=== PATIENT | male | born 1960 | race Caucasian/White ===

== ENCOUNTER → 2017-09-19 | Day surgery (SDC) | payer OTHER ==
[~2017-09-19] MED LIST: BENZOCAINE/TETRACAINE/BUTAMBEN AERO SPRAY 56 GM CAN ONE; BUPROPION HCL100 MG PO; FENTANYL CITRATE/PF 100MCG/2 ML INJ ONE; LEXAPRO10 MG PO; LIDOCAINE HCL 2% LOCAL INJ 5 ML SDV VIAL INJ ONE; MIDAZOLAM HCL 2 MG/2 ML VIAL ONE; OXYBUTYNIN CHLOR5 MG PO; PROPOFOL IV EMULSION 10 MG/ML 20 ML VIAL ONE; SIMETHICONE 40 MG/0.6 ML BTL ONE; ULORIC80 MG PO
== END | disposition home or self-care (01) ==
LOC: OR 09:34
PROVIDERS: ATTEND Internal Medicine Gastroenterology
DX: K52.9 Noninfective gastroenteritis and colitis, unspecified (principal); D12.2 Benign neoplasm of ascending colon; K29.70 Gastritis, unspecified, without bleeding; K44.9 Diaphragmatic hernia without obstruction or gangrene; K57.30 Diverticulosis of large intestine without perforation or abscess without bleeding; K64.8 Other hemorrhoids; M06.9 Rheumatoid arthritis, unspecified; G47.33 Obstructive sleep apnea (adult) (pediatric); R42 Dizziness and giddiness; E66.01 Morbid (severe) obesity due to excess calories; F41.9 Anxiety disorder, unspecified; F31.9 Bipolar disorder, unspecified; Z01.810 Encounter for preprocedural cardiovascular examination; Z68.44 Body mass index [BMI] 60.0-69.9, adult; Z80.0 Family history of malignant neoplasm of digestive organs
CPT/HCPCS: 43239; 45385; 88305; 88312; 93005; J2001; J2250; 45380

== ENCOUNTER → 2018-08-23 | Day surgery (SDC) | payer OTHER ==
[2018-08-16 13:36] LABS: BASOPHILS # (AUTO) 0.1 (0.0-0.1); BASOPHILS % 0.8 % (0.0-1.0); EOSINOPHILS # (AUTO) 0.2 (0.0-0.4); EOSINOPHILS % 1.7 % (0.0-6.0); HEMATOCRIT 47.5 % (38.2-49.6); HEMOGLOBIN 15.6 g/dL (14.0-18.0); LYMPHOCYTES # (AUTO) 2.2 (1.0-3.2); LYMPHOCYTES % 24.2 % (18.0-39.1); MEAN CORPUSCULAR HEMOGLOBIN 30.8 pg (28-32); MEAN CORPUSCULAR HGB CONC 32.8 g/dL (31-35); MEAN CORPUSCULAR VOLUME 93.7 fL (81-99); MONOCYTES % 10.9 % (4.4-11.3); NEUTROPHILS # (AUTO) 5.6 (2.1-6.9); NEUTROPHILS % 61.2 % (38.7-80.0); PLATELET COUNT 345 x10e3/uL (140-360); RED BLOOD COUNT 5.07 x10e6/uL (4.3-5.7); RED CELL DISTRIBUTION WIDTH 13.1 % (11.7-14.4)
[2018-08-16 13:54] LABS: ANION GAP 14.5 mmol/L (8-16); BLOOD UREA NITROGEN 19 mg/dL (7-26); BUN/CREATININE RATIO 20 (6-25); CALCIUM 8.7 mg/dL (8.4-10.2); CARBON DIOXIDE 26 mmol/L (22-29); CHLORIDE 104 mmol/L (98-107); CREATININE, SERUM 0.96 mg/dL (0.72-1.25); EST GLOMERULAR FILTRATION RATE > 60 ML/MIN (60-); GLUCOSE 136 mg/dL (74-118); POTASSIUM 4.5 mmol/L (3.5-5.1); SODIUM 140 mmol/L (136-145)
--- NOTE | 2018-08-16 14:53 | Diagnostic Imaging Report ---
EXAMINATION: CHEST 2 VIEWS INDICATION: Pre-op for cystoscopy COMPARISON: None FINDINGS: TUBES and LINES: None. LUNGS: Lungs are well inflated. Lungs are clear. There is no evidence of pneumonia or pulmonary edema. PLEURA: No pleural effusion or pneumothorax. HEART AND MEDIASTINUM: The cardiomediastinal silhouette is unremarkable. BONES AND SOFT TISSUES: No acute osseous lesion. Soft tissues are unremarkable. UPPER ABDOMEN: No free air under the diaphragm. IMPRESSION: No acute radiographic abnormality. Signed by: Dr. Cresencio Murcia MD on 08/16/2018 2:50 PM
[~2018-08-23] MED LIST changes: +ABILIFY5 MG PO; -BENZOCAINE/TETRACAINE/BUTAMBEN AERO SPRAY 56 GM CAN ONE; +BUSPAR PO; +CEFTRIAXONE SOD 1 GM/NS 50 ML 50 ML IV ONE; +DECARA25000 UNIT PO; +DEXAMETHASONE SOD PHOS INJ 4 MG/ML VIAL ONE; +FISH OIL 1,0001 EAC2 PO; +FUROSEMIDE40 MG PO; +IOPAMIDOL 610MG/1ML 300 MG/ML VIAL IV ONE; +KETAMINE HCL INJ 50 MG/ML 10 ML VIAL ONE; +MAGNESIUM OXID400 MG PO; +MELOXICAM7.5 MG PO; +METFORMIN HCL500 MG PO; +ONDANSETRON HCL INJ 2MG/ML 2ML 2 MG/ML VIAL ONE; +POTASSIUM PO; +SEVOFLURANE INHAL SOLN 250 ML PEN BTL ONE; -SIMETHICONE 40 MG/0.6 ML BTL ONE
--- OUTSIDE RECORDS SUMMARY | 2018-08-23 06:31 | XMS REPORT ---
[facility] Address Unknown Phone Unavailable Care Team Providers Care Presales Consultant Name Role Phone RACHEL BA Unavailable Unavailable Problems This patient has no known problems. Allergies, Adverse Reactions, Alerts This patient has no known allergies or adverse reactions. Medications This patient has no known medications. Results Test Description Test Time Test Comments Text Results Atomic Results Result Comments CHEST 2 VIEWS 2018-08-16 14:42:00 [place] [address] Patient Name: YAMILE TEE MR #: [id number] : 1960 Age/Sex: 57/M Req #: [id number] Adm Physician: Ordered by: RACHEL BA MD Report #: [id number] Location: OR Room/Bed: Procedure: [id number] DX/CHEST 2 VIEWS Exam Date: 08/16/18 Exam Time: 1405 REPORT STATUS: Signed EXAMINATION: CHEST 2 VIEWS INDICATION: Pre-op for cystoscopy COMPARISON: None FINDINGS: TUBES and LINES: None. LUNGS: Lungs are well inflated. Lungs are clear. There is no evidence of pneumonia or pulmonary edema. PLEURA: No pleural effusion or pneumothorax. HEART AND MEDIASTINUM: The cardiomediastinal silhouette is unremarkable. BONES AND SOFT TISSUES: No acute osseous lesion. Soft tissues are unremarkable. UPPER ABDOMEN: No free air under the diaphragm. IMPRESSION: No acute radiographic abnormality. Signed by: Dr. Helen Magana MD on 08/16/2018 2:50 PM Dictated By: HELEN MAGANA MD 49 Transcribed By: TRACY on 08/16/181449 COPY TO: RACHEL BA MD
[2018-08-23 09:55] VITALS: BP 150/78
--- NOTE | 2018-08-24 20:42 | Operative Report ---
DATE OF PROCEDURE: August 23, 2018 PREOPERATIVE DIAGNOSES 1. Multiple chronic urinary tract infections. 2. Clinical signs and symptoms of interstitial cystitis. 3. Obesity. 4. Benign prostatic hypertrophy. POSTOPERATIVE DIAGNOSES 1. Multiple chronic urinary tract infections. 2. Clinical signs and symptoms of interstitial cystitis. 3. Obesity. 4. Benign prostatic hypertrophy. 5. Urethral stricture disease. PROCEDURES PERFORMED 1. Cystourethroscopy with hydrodistention (entirely separate procedure for clinical signs and symptoms of interstitial cystitis). 2. Cystourethroscopy with left ureteral catheterization and left retrograde pyelogram (separate procedure for multiple chronic urinary tract infections). 3. Cystourethroscopy with right ureteral catheterization and right retrograde pyelogram (separate procedure for multiple chronic urinary tract infections). 4. Supervision of fluoroscopy. 5. Interpretation of retrograde pyelography. ANESTHESIA: General. ESTIMATED BLOOD LOSS: Minimal. COMPLICATIONS: None. INDICATIONS FOR PROCEDURE: Mr. Meng is a 57-year-old obese male patient. He states he has been diagnosed with interstitial cystitis previously. He and I had a long discussion regarding alternatives, risks, and benefits including doing nothing, cystoscopy, hydrodistention, retrograde pyelograms, renal ultrasound. He voiced understanding of the options, alternatives, risks, and benefits and he elected to proceed. PROCEDURE IN DETAIL: After informed consent was obtained, the patient was taken to the operative suite. He was placed supine on the operating table and underwent general anesthesia by anesthesia service. He was placed in dorsal lithotomy position and sterilely prepped and draped for cystoscopy. Attempt was made to insert a 21-Japanese cystoscope. There were bulbar urethral strictures multiple in nature. Due to the patient's obesity and body habitus, the scope could not be introduced. A flexible cystoscope was then introduced. There was bilobar prostatic hypertrophy. Panendoscopy of the bladder revealed very large capacity of 1000 mL bladder. The hydrodistention was performed through the flexible scope which showed no trabeculations, no glomerulations, no Hunner's ulcers. Bilateral retrograde pyelogram was performed, which extremely limited secondary to the patient's body habits; however, no gross filling defects could be seen. Bladder was drained. The patient was awakened from anesthesia and transported to recovery room in excellent condition. No untoward effects noted. Job#: [id number]
== END | disposition home or self-care (01) ==
LOC: OR 06:29
PROVIDERS: ATTEND Urology
DX: N39.0 Urinary tract infection, site not specified (principal); N35.912 Unspecified bulbous urethral stricture, male; N40.0 Benign prostatic hyperplasia without lower urinary tract symptoms; E66.9 Obesity, unspecified; I10 Essential (primary) hypertension; G47.33 Obstructive sleep apnea (adult) (pediatric); E11.9 Type 2 diabetes mellitus without complications; Z88.1 Allergy status to other antibiotic agents; Z88.8 Allergy status to other drugs, medicaments and biological substances; Z01.810 Encounter for preprocedural cardiovascular examination; Z01.812 Encounter for preprocedural laboratory examination; Z01.818 Encounter for other preprocedural examination; Z79.84 Long term (current) use of oral hypoglycemic drugs
CPT/HCPCS: 36415 ×2; 52260; 71046; 74420; 80048; 82948; 85025; 93005; C1758; J0696; J1100; J2001; J2250; J2405; J2704; Q9967

== ENCOUNTER 2020-05-18 10:39 | Observation (INO) | payer OTHER ==
[~2020-05-18] VITALS: Ht 172.7 cm; Wt 191.4 kg
[~2020-05-18 10:39] MED LIST changes: -CEFTRIAXONE SOD 1 GM/NS 50 ML 50 ML IV ONE; -DEXAMETHASONE SOD PHOS INJ 4 MG/ML VIAL ONE; -FENTANYL CITRATE/PF 100MCG/2 ML INJ ONE; -IOPAMIDOL 610MG/1ML 300 MG/ML VIAL IV ONE; -KETAMINE HCL INJ 50 MG/ML 10 ML VIAL ONE; -LIDOCAINE HCL 2% LOCAL INJ 5 ML SDV VIAL INJ ONE; -MIDAZOLAM HCL 2 MG/2 ML VIAL ONE; -ONDANSETRON HCL INJ 2MG/ML 2ML 2 MG/ML VIAL ONE; -PROPOFOL IV EMULSION 10 MG/ML 20 ML VIAL ONE; -SEVOFLURANE INHAL SOLN 250 ML PEN BTL ONE
[2020-05-18] MEDS ORDERED: ONDANSETRON HCL INJ 2MG/ML 2ML 2 MG/ML VIAL IV STA (10:54)
[2020-05-18] MEDS ORDERED: KETOROLAC TROMETHAMINE 30 MG/ML VIAL IV STA (10:54)
[2020-05-18 11:28] LABS: BASOPHILS # (AUTO) 0.1 (0.0-0.1); BASOPHILS % 0.8 % (0.0-1.0); EOSINOPHILS # (AUTO) 0.1 (0.0-0.4); EOSINOPHILS % 1.1 % (0.0-6.0); HEMATOCRIT 48.1 % (38.2-49.6); HEMOGLOBIN 15.6 g/dL (14.0-18.0); LYMPHOCYTES # (AUTO) 1.7 (1.0-3.2); LYMPHOCYTES % 15.9 % (18.0-39.1); MEAN CORPUSCULAR HGB CONC 32.4 g/dL (31-35); MEAN CORPUSCULAR VOLUME 95.6 fL (81-99); MONOCYTES # (AUTO) 0.8 (0.2-0.8); NEUTROPHILS # (AUTO) 7.6 (2.1-6.9); NEUTROPHILS % 73.4 % (38.7-80.0); PLATELET COUNT 351 x10e3/uL (140-360); RED BLOOD COUNT 5.03 x10e6/uL (4.3-5.7); RED CELL DISTRIBUTION WIDTH 13.4 % (11.7-14.4)
[2020-05-18 11:50] LABS: INR 0.94
[2020-05-18 11:51] LABS: PARTIAL THROMBOPLASTIN TIME 26.6 seconds (23.8-35.5)
[2020-05-18 11:58] LABS: ALANINE AMINOTRANSFERASE 36 IU/L (0-55); ALBUMIN 3.6 g/dL (3.5-5.0); ALBUMIN/GLOBULIN RATIO 1.2 (0.8-2.0); ALKALINE PHOSPHATASE 76 IU/L (40-150); ANION GAP 14.9 mmol/L (8-16); BLOOD UREA NITROGEN 10 mg/dL (7-26); BUN/CREATININE RATIO 12 (6-25); CALCIUM 8.6 mg/dL (8.4-10.2); CARBON DIOXIDE 26 mmol/L (22-29); CHLORIDE 104 mmol/L (98-107); CREATINE KINASE 26 IU/L (30-200); CREATININE, SERUM 0.86 mg/dL (0.72-1.25); EST GLOMERULAR FILTRATION RATE > 60 ML/MIN (60-); GLUCOSE 160 mg/dL (74-118); POTASSIUM 3.9 mmol/L (3.5-5.1); SODIUM 141 mmol/L (136-145)
--- NOTE | 2020-05-18 12:02 | Diagnostic Imaging Report ---
TECHNIQUE: Frontal view of the chest. INDICATION: ^MORBID OBESITY, CP COMPARISON: 08/16/2018 DISCUSSION: Limited evaluation due to portable technique and patient body habitus. Lines and hardware: Overlying EKG leads is noted Heart and mediastinum: Stable. Lungs and pleura: No focal airspace consolidation. No pleural effusion. No pneumothorax. Soft tissues and bones: No acute abnormality. IMPRESSION: Limited evaluation due to patient body habitus. Stable exam without focal consolidation. Signed by: Soto Dumont MD on 05/18/2020 11:59 AM
--- OUTSIDE RECORDS SUMMARY | 2020-05-18 12:04 | XMS REPORT | Continuity of Care Document ---
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 Name Role Phone Ronak MINOR Attphys Unavailable Kieran Dempsey Attphys Cherelle Branch Attphys NIRAV BA Attphys Unavailable Colin Tadeo Jr Attphys Yuliana Gonzalez Attphys Kieran Dempsey Admphys Problems Condition Name Condition Details Condition Category Status Onset Date Resolution Date Last Treatment Date Treating Clinician Comments Source ROBOTIC ASSISTED LAPAROSCOPIC GASTRIC SL ROBOTIC ASSISTED LAPAROSCOPIC GASTRIC SL Active 08/27/2019 [facility] Active 2019-08-27 00:00:00 2019-09-15 13:25:00 M peewee Moy NIGHT - 72787 NIGHT - 21601 Active 04/25/2019 [facility] Active 2019-04-25 00:00:00 2019-05-01 19:49:00 Sunil Moy E66.01 MORBID (SEVERE) OBESITY DUE TO EX E66.01 MORBID (SEVERE) OBESITY DUE TO EX Active 07/25/2018 [facility] Ac tive 2018-07-25 00:00:00 2018-09-02 11:15:00 M peewee Moy M75.102 - UNSP ROTATR-CUFF TEAR/RUPTR OF M75.102 - UNSP ROTATR-CUFF TEAR/RUPTR OF Active 10/25/2015 [facility] Active 2015-10-25 00:01:00 2015-10-27 10:59:00 M peewee Moy Diabetes mellitus (disorder) D iabetes mellitus (disorder) Active Problem 09/14/2019 [facility] Problem Active 2019-09-14 22:23:12 [facility] [place] Dyspnea on exertion (finding) Dyspnea on exertion (finding) Active Problem 09/14/2019 [facility] Problem Active 2019-09-14 22:23:12 Sunil Moy Exposure to asbestos (event) E xposure to asbestos (event) Active Problem 09/14/2019 [facility] Problem Active 2019-09-14 22:23:12 Sunil Moy Gout (disorder) Gout (disorder) Active Problem 09/14/2019 [facility] Problem Active 2019-09-14 22:23:12 [facility] Hearing loss (finding) Hear ing loss (finding) Active Problem 09/14/2019 [facility] Problem Active 2019-09-14 22:23:1 2 [facility] [place] Increased frequency of urination (finding) Increased frequency of urination (finding) Active Problem 09/14/2019 [facility] Problem Active 2019-09-14 22:23:12 [facility] [place] Irritable colon (disorder) Irr itable colon (disorder) Active Problem 09/14/2019 [facility] Problem Active 2019-09-14 22:23:12 [facility] [place] Mixed anxiety and depressive disorder (disorder) Mixed anxiety and depressive disorder (disorder) Active Problem 09/14/2019 [facility] Problem Active 2019-09-14 22:23:12 [facility] Obesity (disorder) Obes ity (disorder) Active Problem 09/14/2019 [facility] Problem Active 2019-09-14 22:23:12 [facility] [place] Paraparesis (disorder) Para paresis (disorder) Active Problem 09/14/2019 [facility] Problem Active 2019-09-14 22:23:1 2 [facility] [place] Peripheral vascular disease (disorder) Peripheral vascular disease (disorder) Active Problem 09/14/2019 LE edema [facility] Problem Active 2019-09-14 22:23:12 [facility] [place] MORBID (SEVERE) OBESITY DUE TO EXCESS CA MORBID (SEVERE) OBESITY DUE TO EXCESS CA Active [facility] Diagnosis Active 2019-09-15 13:25:00 [facility] [place] DIAPHRAGMATIC 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 Allergies, Adverse Reactions, Alerts Allergy Name Allergy Type Status Severity Reaction(s) Onset Date Inacti ve Date Treating Clinician Comments Source Flomax Flomax Active [facility] kasia Macrodantin Macrodantin Active [facility] Latex Latex Active [facility] Social History Social Habit Start Date Stop Date Quantity Comments Source Social History 2015-10-28 04:59:00 2015-10-28 04:59:00 [facility] [place] Smoking Status Start Date Stop Date Source Social History [facility] [place] Medications Ordered Medication Name Filled Medication Name Start Date Stop Da te Current Medication? Ordering Clinician Indication Dosage Frequency Signature (SIG) Comments Components Source Oxycodone Hydrochloride 5 MG Oral Tablet 2019-09-12 15:46:00 No 5 mg, 1 tab, Route: PO, POST OP, Dosing Weight 192.813, kg, Start date: 09/12/19 9:46:00 [employer], Duration: 30 day, Stop date: 10/12/19 10:45:00 CDT [facility] [place] acetaminophen 325 mg oral tablet 2019-09-12 15:08:00 Yes 650 mg = 2 tab, PO, Q6H, X 3 day, # 24 tab, 0 Refill(s) [facility] [place] Docusate Sodium 100 MG Oral Capsule [Colace] 2019-09-12 15:08:00 Yes 100 mg = 1 cap, PO, BID, PRN Constipation, # 20 cap, 0 Refill(s) [facility] [place] tramadol hydrochloride 50 MG Oral Tablet 2019-09-12 15:08:00 No 50 mg = 1 tab, PO, Q4H, PRN Pain Score 4-6, X 2 day, # 12 tab, 0 Refill(s) [facility] [place] Acetaminophen 2019-09-12 15:07:00 No 1,000 mg, Route: PO, Drug form: TAB, ONCE, Dosing Weight 192.813, kg, PRN Pain Score 1-3, Start date: 09/12/19 9:07:[address] [employer] [facility] Morphine 2019-09-12 15:07:00 No 2 mg, Route: IVP, Q5Min, Dosing Weight 192.813, kg, PRN Pain Score 4-6, Start date: 09/12/19 9:07:00 [employer], Duration: 5 doses or times, Stop date: Limited # of times [facility] [place] Hydromorphone 2019-09-12 15:07:00 No 0.5 mg, Route: IVP, Q5Min, Dosing Weight 192.813, kg, PRN Pain Score 7-10, Start date: 09/12/19 9:07:00 [employer], Duration: 4 doses or times, Stop date: Limited # of times [facility] Flumazenil 2019-09-12 15:07:00 No 0.2 mg, Route: IVP, PRN, Dosing Weight 192.813, kg, PRN Benzodiazepine Reversal, Initial dose, Start date: 09/12/19 9:07:00 [employer], Duration: 30 day, Stop date: 10/12/19 10:06:00 CDT [facility] Naloxone 2019-09-12 15:07:00 No 0.4 mg, Route: IVP, Q2MIN, Dosing Weight 192.813, kg, PRN Narcotic Reversal, Start date: 09/12/19 9:07:00 [employer], Duration: 8 doses or times, Stop date: Limited # of times [facility] Ondansetron 2019-09-12 15:07:00 No 4 mg, Route: IVP, ONCE, Dosing Weight 192.813, kg, PRN Nausea & Vomiting, Start date: 09/12/19 9:07:00 [employer] [facility] Calcium Chloride 0.0014 MEQ/ML / Potassi um Chloride 0.004 MEQ/ML / Sodium Chloride 0.103 MEQ/ML / Sodium Lactate 0.028 MEQ/ML Injectable Solution 2019-09-12 13:44:00 No 1,000 mL, Rate: 75 ml/hr, Infuse over: 13.3 hr, Route: IV, Dosing Weight 192.813 kg, Total Volume: 1,000, Start date: 09/12/19 7:44:00 [employer], Duration: 30 day, Stop date: 10/12/19 7:43:00 CDT, 3.11, m2, 0 [facility] heparin 2019-09-12 13:33:00 No 5,000 unit, Route: SUB-Q, ONCE, Dosing Weight 192.813, kg, Start date: 09/12/19 7:33:00 [employer], Stop date: 09/12/19 7:33:00 [facility] 72 HR Scopolamine 0.0139 MG/HR Transdermal Patch 2019-09-12 13:3 3:00 No 1 patch, Route: TOP, Drug Fo rm: ERFILM, Dosing Weight 192.813, kg, ONCE, Start date: 09/12/19 7:33:00 [employer], Stop date: 09/12/19 7:33:[address] [employer] [facility] Symbicort 160/4.5 inhalation aerosol with adapter 2019-09-05 14:56:00 Yes 2 puff, INHALATION, BID, # 1 ea, 1 Refill(s) Sunil Moy Melatonin 10 mg oral tablet, disintegrating 2019-09-05 14:49:00 Yes 10 mg = 1 tab, CHEW, Bedtime, 0 Refill(s) [facility] [place] multivitamin 2019-09-05 14:48:00 Yes CHEW, D aily, 0 Refill(s) [facility] ARIPiprazole 2019-09-05 14:47:00 Yes = 1 tab, PO, QPM, 0 Refill(s) Sunil Moy escitalopram 5 mg oral tablet 2019-09-05 14:46:00 Yes 5 mg = 1 tab, PO, QPM, # 30 tab, 1 Refill(s) [facility] [place] allopurinol 100 mg oral tablet 2019-09-05 14:43:00 Yes 100 mg = 1 tab, PO, QPM, # 90 tab, 1 Refill(s) Hernando Moy meloxicam 15 mg oral tablet 2019-09-05 14:43:00 Yes 15 mg = 1 tab, PO, Daily, PRN Pain, # 30 tab, 1 Refill(s) Sunil [place] busPIRone 15 mg oral tablet 2019-09-05 14:42:00 Yes 15 mg = 1 tab, PO, BID, # 270 tab, 0 Refill(s) [facility] [place] Metformin hydrochloride 500 MG Oral Tablet 2019-09-05 14:41:00 Yes 500 mg = 1 tab, PO, QAM, # 180 tab, 1 Refill(s) Sunil Moy 24 HR Metformin hydrochloride 750 MG Extended Release Tablet 2019-09-05 14:41:00 Yes 750 mg = 1 tab, PO, QPM, 0 Re fill(s) Sunil [place] Aspirin Enteric Coated 81 mg oral delayed release tablet 2019-09-05 14:40:00 Yes 81 mg = 1 tab, PO, Daily, 0 Refi ll(s) [facility] [place] Vital Signs Vital Name Observation Time Observation Value Comments Source Systolic (mm Hg) 2019-09-12 16:15:00 Hernando Moy Diastolic (mm Hg) 2019-09-12 16:15:00 [facility] [place] Systolic (mm Hg) 2019-09-12 16:00:00 [facility]ando [facility] [place] Diastolic (mm Hg) 2019-09-12 16:00:00 [facility] [place] Systolic (mm Hg) 2019-09-12 15:45:00 [facility]ando [facility] [place] Diastolic (mm Hg) 2019-09-12 15:45:00 [facility] [place] Respitory Rate 2019-09-12 15:37:00 [facility] [place] Respitory Rate 2019-09-12 [facility]:20:[facility] [place] [facility] Rate 2019-09-12 15:05:00 [facility] [place] Heart Rate 2019-09-12 13:00:00 [facility] Weight 2019-09-09 17:12:00 [facility] BMI Calculated 2019-09-09 17:12:00 [facility] [place] Height 2019-09-05 14:39:00 172.72 cm [facility] Procedures Procedure Date / Time Performed Performing Clinician Sourc e CTR - Carpal tunnel release Hernando rial [place] Endoscopy [facility] Excision of Mendenhall's neuroma [facility] orial [place] Manipulation of deviated nasal septum [facility] Meniscectomy of knee [facility] Tonsillectomy with adenoidectomy [facility] Encounters Start Date/Time End Date/Time Encounter Type Admission Type [facility] Care Department Encounter ID Source 2019-09-12 05:40:00 Inpatient [facility] 02 [facility] 2019-09-12 05:40:00 2019-09-12 10:35:00 Outpatient Moustapha Dempsey [facility] [id number] 2019-05-01 19:39:00 2019-05-01 23:59:00 Outpatient Mariola Branch [facility] [id number] 2019-05-01 19:39:00 2019-05-01 19:39:00 Outpatient [facility] 2018-08-26 15:06:00 2018-09-24 23:59:00 Outpatient Mariola Branch [facility] [id number] 2015-10-27 10:50:00 2015-10-27 23:59:00 [facility] [id number] 2015-01-18 11:32:00 2015-01-18 23:59:00 [id number] Results Test Description Test Time Test Comments Results Result Comments Source CHEST SINGLE (PORTABLE) 2020-05-18 11:58:00 [facility] [address] [place] [address] Patient Name: YAMILE TEE MR #: [id number] : 1960 Age/Sex: 59/M Req #: [id number] Adm Physician: Ordered by: RUBY MINOR MD Report #: [id number] Location: ER Room/Bed: Procedure: [id number] DX/CHEST SINGLE (PORTABLE) Exam Date: Exam Time: REPORT STATUS: Signed TECHNIQUE: Frontal view of the chest. INDICATION: MORBID OBESITY, CP COMPARISON: 08/16/2018 DISCUSSION: Limited evaluation due to portable technique and patient body habitus. Lines and hardware: Overlying EKG leads is noted Heart and mediastinum: Stable . Lungs and pleura: No focal airspace consolidation. No pleural effusion. No pneumothorax. Soft tissues and bones: No acute abnormality. IMPRESSION: Limited evaluation due to patient body habitus. Stable exam without focal consolidation. Signed by: Tasha Dumont MD on 05/18/2020 11:59 AM Dictated By: TASHA DUMONT MD 1159 Transcribed By: TRACY on 05/18/20 1159 COPY TO: RUBY MINOR MD BLOOD BANK RESULTS 2019-09-09 16:50:00 Negative (09/09/19 10 :50 AM) [facility] [place] CHEM PANEL 2019-09-09 16:50:00 160 [facility] [place] CHEM PANEL 2019-09-09 16:50:00 19 [facility] [place] CHEM PANEL 2019-09-09 16:50:00 1.05 [facility] [place] CHEM PANEL 2019-09-09 16:50:00 138 [facility] [place] CHEM PANEL 2019-09-09 16:50:00 4.0 [facility] [place] CHEM PANEL 2019-09-09 16:50:00 104 [facility] [place] CHEM PANEL 2019-09-09 16:50:00 26 [facility] [place] CHEM PANEL 2019-09-09 16:50:00 9.1 [facility] [place] CHEM PANEL 2019-09-09 16:50:00 7.2 [facility] [place] CHEM PANEL 2019-09-09 16:50:00 3.6 [facility] [place] CHEM PANEL 2019-09-09 16:50:00 47 [facility] [place] CHEM PANEL 2019-09-09 16:50:00 22 [facility] [place] CHEM PANEL 2019-09-09 16:50:00 86 [facility] [place] CHEM PANEL 2019-09-09 16:50:00 0.8 [facility] [place] CHEM PANEL 2019-09-09 16:50:00 12.0 [facility] [place] CHEM PANEL 2019-09-09 16:50:00 Test Item B/C Ratio (test code = B/C Ratio) 18 1 6-25 [facility]annCHEM [id number] 16:50:003[facility] 2019-09-09 16:50:00* Test Item Value Reference Range Interpretation Comments A/G Ratio (test code = A/G Ratio) 1.0 1 0.7-1.6 [facility]ann[facility] [id number] 16:50:0077[facility]ann[facility] PANEL 2019-09-09 16:50:0038.3[facility] SrijvjfYKDTSSOJII6462-02-07 16:50:0071.3[facility] TfuqdmzDWJMUOYKRI9840-69-66 16:50:0017.1[facility] WlkffxcXZLVGAXJUM2730-28-85 16:50:009.1[facility] LcbtiqnSGHFCZERMZ9762-91-73 16:50:001.2[facility] [place] FIDYERQIWS5852-92-95 16:50:001.3[facility] LonxobmNMHAINWIEO1406-83-19 16:50:008.5 [facility] XwfbjomBJVNWGBACP0417-02-32 16:50:002.0[facility]ann[facility]MATOLOGY 2019-09-09 16:50:001.1[facility] NhxlzvuPDGOGWMEKL6281-03-08 16:50:000.1[facility] UgtxsphOBEYVEXSBX5133-94-72 16:50:000.2[facility] NgsfftdNUMRUWWJOA0775-52-70 16:50:0011.9[facility] CoaizzqQMUHKYNIDL8690-44-31 16:50:005.38[facility] [place] ANHTHJVWVP7310-61-50 16:50:0016.8[facility] UfpngsnGTOPJTIRXH8753-85-40 16:50:00 50.7[facility] SpdnjyzXBAVCBRZUQ2756-94-76 16:50:0094.2[facility]ann[facility]MATOLOGY 2019-09-09 16:50:00* Test Item Value Reference Range Interpretation Comments MCH (test code = MCH) 31.2 pg 27.0-31.0 [facility] KguujswGDEFYMRWKY2779-31-07 16:50:0033.1[facility]ann[facility]MATOLOGY 2019-09-09 16:50:0013.6[facility] GuhyjnjILBLVHWJPP3666-75-66 16:50:45351Ncvgfunf CexllgaJIVVLSSXTS8808-28-05 16:50:008.4[facility] HermannSPECIAL CHEMISTRY 2019-09-09 16:50:007.0[facility] HermannCHEST 2 FOQUO6133-54-05 14:42:00 [place] [address] Patient Name: YAMILE TEE MR #: [id number] : 1960 Age/Sex: 57/M Req #: [id number] Adm Physician: Ordered by: NIRAV BA MD Report #: [id number] Location: OR Room/Bed: Procedure: [id number] DX/SCOTT ST 2 VIEWS Exam Date: 08/16/18 Exam Time: 1405 REPORT STATUS: Signed EXAMINATION: C HEST 2 VIEWS INDICATION: Pre-op for cystoscopy COMPARISON: None FINDINGS: TUBES and LINES: None. LUNGS: Lungs are well inflate d. Lungs are clear. There is no evidence of pneumonia or pulmonary edema. PLEURA: No pleural effusion or pneumothorax. HEART AND MEDIASTINUM: The cardiomediastinal silhouette is unremarkable. BONES AND SOFT TISSUE S: No acute osseous lesion. Soft tissues are unremarkable. UPPER ABDOME N: No free air under the diaphragm. IMPRESSION: No acute radiographi c abnormality. Signed by: Dr. Helen Magana MD on 08/16/2018 2:50 PM D ictated By: HELEN MAGANA MD 1 450 Transcribed By: TRACY on 08/16/18 [id number] COPY TO: NIRAV BA MD
--- OUTSIDE RECORDS SUMMARY | 2020-05-18 12:04 | XMS REPORT | Continuity of Care Document ---
Author Author Sunil Chinmay [employer] YAMILE Velarde [employer] Address Unknown Phone Unavailable Care Team Providers Care Confidential Investigator Name Role Phone [employer] Unavailable Un available Problems Problem Status Onset Date Classification Date Reported Comments Source ROBOTIC ASSISTED LAPAROSCOPIC GASTRIC SL Active 08/27/2019 [facility] 1ST NIGHT - 36042 Active 04/25/2019 [facility] E66.01 MORBID (SEVERE) OBESITY DUE TO EX Active 07/25/2018 [facility] M75.102 - UNSP ROTATR-CUFF TEAR/RUPTR OF Active 10/25/2015 [facility] [place] Diabetes mellitus (disorder) A ctive Problem 04/2020 [facility] Dyspnea on exertion (finding) Active Problem 04/2020 [facility] Exposure to asbestos (event) A ctive Problem 04/2020 [facility] Gout (disorder) Active Problem 09/14/2019 [facility] Hearing loss (finding) Active Problem 09/14/2019 [facility] Increased frequency of urination (finding) Active Problem 09/14/2019 [facility] Irritable colon (disorder) Act lucia Problem 04/2020 [facility] Mixed anxiety and depressive disorder (disorder) Active Problem 09/14/2019 [facility] Obesity (disorder) Active Problem 09/14/2019 [facility] Paraparesis (disorder) Active Problem 09/14/2019 [facility] Peripheral vascular disease (disorder) Active Problem 04/2020 LE edema [facility] MORBID (SEVERE) OBESITY DUE TO EXCESS CA Active [facility] DIAPHRAGMATIC HERNIA WITHOUT OBSTRUCTION Active [facility] Medications Medication Details Route Status Patient Instructions Ordering Provider Order Date Source Oxycodone Hydrochloride 5 MG Oral Tablet 5 mg, 1 tab, Route: PO, POST OP, Dosing Weight 192.813, kg, Start date: 09/12/19 9:46:00 PRESERVATIONIST, Duration: 30 day, Stop date: 10/12/19 10:45:00 CDT Inactive 09/12/2019 [facility] acetaminophen 325 mg oral tablet 650 mg = 2 tab, PO, Q6H, X 3 day, # 24 tab, 0 Refill(s) Active 09/12/2019 [facility] Docusate Sodium 100 MG Oral Capsule [Colace] 100 mg = 1 cap, PO, BID, PRN Constipation, # 20 cap, 0 Refill(s) Active 09/12/2019 [facility] tramadol hydrochloride 50 MG Oral Tablet 50 mg = 1 tab, PO, Q4H, PRN Pain Score 4-6, X 2 day, # 12 tab, 0 Refill(s) No Longer Active 09/12/2019 [facility] Acetaminophen 1,000 mg, Route: PO, Drug form: TAB, ONCE, Dosing Weight 192.813, kg, PRN Pain Score 1-3, Start date: 09/12/19 9:07:00 PRESERVATIONIST Inactive 09/12/2019 [facility] Morphine 2 mg, Route: IVP, Q5M in, Dosing Weight 192.813, kg, PRN Pain Score 4-6, Start date: 09/12/19 9:07:00 PRESERVATIONIST, Duration: 5 doses or times, Stop date: Limited # of times Inactive 09/12/2019 [facility] Hydromorphone 0.5 mg, Route: I DUCT MAKER, Q5Min, Dosing Weight 192.813, kg, PRN Pain Score 7-10, Start date: 09/12/19 9:07:00 PRESERVATIONIST, Duration: 4 doses or times, Stop date: Limited # of times Inactive 09/12/2019 [facility] Flumazenil 0.2 mg, Route: IVP, PRN, Dosing Weight 192.813, kg, PRN Benzodiazepine Reversal, Initial dose, Start date: 09/12/19 9:07:00 PRESERVATIONIST, Duration: 30 day, Stop date: 10/12/19 10:06:00 CDT Inactive 09/12/2019 [facility] Naloxone 0.4 mg, Route: IVP, Q 2MIN, Dosing Weight 192.813, kg, PRN Narcotic Reversal, Start date: 09/12/19 9:07:00 PRESERVATIONIST, Duration: 8 doses or times, Stop date: Limited # of times Inactive 09/12/2019 [facility] Ondansetron 4 mg, Route: IVP, ONCE, Dosing Weight 192.813, kg, PRN Nausea & Vomiting, Start date: 09/12/19 9:07:00 PRESERVATIONIST Inactive 09/12/2019 [facility] Calcium Chloride 0.0014 MEQ/ML / Potassi um Chloride 0.004 MEQ/ML / Sodium Chloride 0.103 MEQ/ML / Sodium Lactate 0.028 MEQ/ML Injectable Solution 1,000 mL, Rate: 75 ml/hr, Infuse over: 1 3.3 hr, Route: IV, Dosing Weight 192.813 kg, Total Volume: 1,000, Start date: 09/12/19 7:44:00 PRESERVATIONIST, Duration: 30 day, Stop date: 10/12/19 7:43:00 CDT, 3.11, m2, 0 Inactive 09/12/2019 [facility] heparin 5,000 unit, Route: SUB -Q, ONCE, Dosing Weight 192.813, kg, Start date: 09/12/19 7:33:00 PRESERVATIONIST, Stop date: 09/12/19 7:33:00 PRESERVATIONIST Inactive 09/12/2019 [facility] 72 HR Scopolamine 0.0139 MG/HR Transdermal Patch 1 patch, Route: TOP, Drug Form: ERFILM, Dosing Weight 192.813, kg, ONCE, Start date: 09/12/19 7:33:00 PRESERVATIONIST, Stop date: 09/12/19 7:33:00 PRESERVATIONIST Inactive 09/12/2019 [facility] Symbicort 160/4.5 inhalation aerosol with adapter 2 puff, INHALATION, BID, # 1 ea, 1 Refill(s) Active 09/05/2019 [facility] Melatonin 10 mg oral tablet, disintegrating 10 mg = 1 tab, CHEW, Bedtime, 0 Refill(s) Active 09/05/2019 [facility] multivitamin CHEW, Daily, 0 Re fill(s) Active 09/05/2019 [facility] ARIPiprazole = 1 tab, PO, QPM, 0 Refill(s) Active 09/05/2019 [facility] escitalopram 5 mg oral tablet 5 mg = 1 tab, PO, QPM, # 30 tab, 1 Refill(s) Active 09/05/2019 [facility] allopurinol 100 mg oral tablet 100 mg = 1 tab, PO, QPM, # 90 tab, 1 Refill(s) Active 09/05/2019 [facility] meloxicam 15 mg oral tablet 15 mg = 1 tab, PO, Daily, PRN Pain, # 30 tab, 1 Refill(s) Active 09/05/2019 [facility] busPIRone 15 mg oral tablet 15 mg = 1 tab, PO, BID, # 270 tab, 0 Refill(s) Active 09/05/2019 [facility] Metformin hydrochloride 500 MG Oral Tablet 500 mg = 1 tab, PO, QAM, # 180 tab, 1 Refill(s) Active 09/05/2019 [facility] 24 HR Metformin hydrochloride 750 MG Ext ended Release Tablet 750 mg = 1 tab, PO, QPM, 0 Refill(s) Active 09/05/2019 [facility] Aspirin Enteric Coated 81 mg oral delaye d release tablet 81 mg = 1 tab, PO, Daily, 0 Refill(s) Active 09/05/2019 [facility] Allergies, Adverse Reactions, Alerts Substance Category Reaction Severity Reaction type Status Date Reported Comments Source Flomax Assertion Drug allergy Active [facility] Macrodantin Assertion Drug allergy Active [facility] Latex Assertion Drug allergy Active [facility] Immunizations No Data Provided for This Section Results Order Name Results Value Reference Range Date Interpretation Comments Source BLOOD BANK RESULTS ABO/Rh O NEG 09/09/2019 [facility] BLOOD BANK RESULTS Antibody Scrn Negative (09/09/19 10:50 AM) 09/09/2019 [facility] CHEM PANEL Glucose Lvl 160 70 - 99 09/09/2019 [facility] CHEM PANEL BUN 19 7 - 22 09/09/2019 [facility] CHEM PANEL Creatinine Lvl 1.05 0.50 - 1.40 09/09/2019 [facility] CHEM PANEL Sodium Lvl 138 135 - 145 09/09/2019 [facility] CHEM PANEL Potassium Lvl 4.0 3.5 - 5.1 09/09/2019 [facility] CHEM PANEL Chloride Lvl 104 95 - 109 09/09/2019 [facility] CHEM PANEL CO2 26 24 - 32 09/09/2019 [facility] CHEM PANEL Calcium Lvl 9.1 8.5 - 10.5 09/09/2019 [facility] CHEM PANEL Total Protein 7.2 6.4 - 8.4 09/09/2019 [facility] CHEM PANEL Albumin Lvl 3.6 3.5 - 5.0 09/09/2019 [facility] CHEM PANEL ALT 47 0 - 65 09/09/2019 [facility] CHEM PANEL AST 22 0 - 37 09/09/2019 [facility] CHEM PANEL Alk Phos 86 39 - 136 09/09/2019 [facility] CHEM PANEL Bili Total 0.8 0.2 - 1.3 09/09/2019 [facility] CHEM PANEL AGAP 12.0 10.0 - 20.0 09/09/2019 [facility] CHEM PANEL B/C Ratio 18 6 - 25 09/09/2019 [facility] CHEM PANEL Globulin 3.6 2.7 - 4.2 09/09/2019 [facility] CHEM PANEL A/G Ratio 1.0 0.7 - 1.6 09/09/2019 [facility] CHEM PANEL eGFR 77 09/09/2019 Result Comment: The eGFR is calculated using the CKD-EPI formula. In most young, healthy individuals the eGFR will be >90 mL/min/1.73m2. The eGFR declines with age. An eGFR of 60-89 may be normal in some populations, particularly the elderly, for whom the CKD-EPI formula has not been extensively validated. Use of the eGFR is not recommended in the following populations:

Individuals with unstable creatinine concentrations, including patients and those with serious co-morbid conditions.

Patients with extremes in muscle mass or diet.

The data above are obtained from the National Kidney Disease Education Program (NKDEP) which additionally recommends that when the eGFR is used in patients with extremes of body mass index for purposes of drug dosing, the eGFR should be multiplied by the estimated BMI. [facility] CHEM PANEL Vitamin D, 25-OH, Total 3 8.3 30.0 - 100.0 09/09/2019 [facility] HEMATOLOGY Segs 71.3 45.0 - 75.0 09/09/2019 [facility] Lymphocytes 17.1 20.0 - 40.0 09/09/2019 [facility] HEMATOLOGY Monocytes 9.1 2.0 - 12.0 09/09/2019 [facility] HEMATOLOGY Eosinophils 1.2 0.0 - 4.0 09/09/2019 [facility] HEMATOLOGY Basophils 1.3 0.0 - 1.0 09/09/2019 [facility] HEMATOLOGY Neutrophils # 8.5 1.5 - 8.1 09/09/2019 [facility] HEMATOLOGY Lymphocytes # 2.0 1.0 - 5.5 09/09/2019 [facility] Monocytes # 1.1 0.0 - 0.8 09/09/2019 [facility] HEMATOLOGY Eosinophils # 0.1 0.0 - 0.5 09/09/2019 [facility] Basophils # 0.2 0.0 - 0.2 09/09/2019 [facility] HEMATOLOGY WBC 11.9 3.7 - 10.4 09/09/2019 [facility] HEMATOLOGY RBC 5.38 4.70 - 6.10 09/09/2019 [facility] HEMATOLOGY Hgb 16.8 14.0 - 18.0 09/09/2019 [facility] Hct 50.7 42.0 - 54.0 09/09/2019 [facility] MCV 94.2 80.0 - 94.0 09/09/2019 [facility] MCH 31.2 27.0 - 31.0 09/09/2019 [facility] MCHC 33.1 32.0 - 36.0 09/09/2019 [facility] RDW 13.6 11.5 - 14.5 09/09/2019 [facility] Platelet 357 133 - 450 09/09/2019 [facility] MPV 8.4 7.4 - 10.4 09/09/2019 [facility] SPECIAL CHEMISTRY Hgb A1C 7.0 <=5.6 % 09/09/2019 [facility] Pathology Reports No Data Provided for This Section Diagnostic Reports Report Value Date Source Chest 2 views DX PROCEDURE INF ORMATION: Exam: XR Chest, 2 Views Exam date and time: 09/09/2019 11:03 AM Age: 58 years old Clinical indication: Coughing/pre-op TECHNIQUE: Imaging protocol: XR of the chest Views: 2 views. PA and Lateral COMPARISON: No relevant prior studies available. FINDINGS: Lungs: There are normal lung volumes without consolidation or interstitial oppacities. Pleural space: Unremarkable. No pleural effusion. No pneumothorax. Heart/Mediastinum: The heart size is normal. The pulmonary vasculature is normal. The mediastinal contour is normal. The trachea is midline. Bones/joints: No acute abnormality seen. IMPRESSION: No acute cardiopulmonary findings Willie Bazan MD On 09/09/2019 16:34:00; [id number] 09/09/2019 [facility] Shoulder series DX EXAM: Shoul chanell series DX HISTORY: M75.102 Unspecified rotator cuff tear or rupture of left shoulder, not specified as traumatic COMPARISON: None 3 views of the left shoulder. No fractur e is seen. Alignment is normal. IMPRESSION: No acute abnormality. 10/27/2015 [facility] [place] Knee wo contrast MRI EXAM: MR I of the left knee without contrast. HISTORY: Left knee pain COMPARISON: None. TECHNIQUE: Multiplanar, multisequence MRI of the left knee without contrast. FINDINGS: Intercondylar notch: The anterior and posterior cruciate ligaments are intact. There is a large osseous spur off along the lateral aspect of the intercondylar notch, which causes mild mass effect upon the ACL. Collateral ligaments: The medial and lateral collateral ligaments are intact. Medial compartment: There is chronic degenerative tearing and attenuation of the posterior horn, body, and to a lesser extent anterior horn of the medial meniscus. There is mild extrusion of the body remnant of the medial meniscus. There is severe medial compartment osteoarthritis characterized by large areas of full-thickness cartilage loss along the weight-bearing portions of the medial femoral condyle and medial tibial plateau with mild subchondral bone marrow edema and prominent joint space narrowing. Lateral compartment: There is slight intrasubstance degeneration in the lateral meniscus. There is no lateral meniscal tear. There is full-thickness cartilage loss along the central weight-bearing portion of the lateral tibial plateau with minimal subchondral marrow edema. There is also partial-thickness cartilage loss along the central weight-bearing portion of the lateral femoral condyle. The posteromedial and posterolateral corner structures are intact. Patellofemoral compartment: There is mild patellar tendinosis. The patellar and quadriceps tendons are intact. There is chondral thinning and a small chondral fissure along the lateral patellar facet with a subchondral cyst. There is also focal cartilage loss along the far lateral trochlea with mild subchondral bone marrow edema. There is also chondral degeneration and loss along the central trochlea. There is mild lateral patellar subluxation, but no soft tissue edema in the superolateral aspect of Hoffa's fat-pad. Other findings: There is a small joint effusion with synovitis. No osteochondral body is seen. There is tricompartmental marginal osteophytosis. There is a multiseptated probable ganglion cyst posterolaterally adjacent to the adductor tubercle measuring 3.0 x 1.5 x 2.2 cm. IMPRESSION: 1. Chronic degenerative tearing and atte nuation of the posterior horn, body, and to a lesser extent anterior horn of the medial meniscus. There is mild extrusion of the body remnant of the medial meniscus. 2. Severe medial compartment osteoarthri tis characterized by large areas of full-thickness cartilage loss along the weight-bearing portions of the medial femoral condyle and medial tibial plateau with mild subchondral bone marrow edema and prominent joint space narrowing. 3. Full-thickness cartilage loss along t he central weight-bearing portion of the lateral tibial plateau with minimal subchondral marrow edema. There is also partial-thickness cartilage loss along the central weight-bearing portion of the lateral femoral condyle. 4. Chondral thinning and a small chondra l fissure along the lateral patellar facet with a subchondral cyst. There is also focal cartilage loss along the far lateral trochlea with mild subchondral bone marrow edema. There is also chondral degeneration and loss along the central trochlea. 5. Mild patellar tendinosis without a te ar. 6. Small joint effusion with synovitis. No loose bodies. 7. Multiseptated probable ganglion cyst posterolaterally adjacent to the adductor tubercle measuring 3.0 x 1.5 x 2.2 cm. 01/18/2015 [facility] Consultation Notes No Data Provided for This Section Discharge Summaries No Data Provided for This Section History and Physicals No Data Provided for This Section Vital Signs Vital Sign Value Date Comments Source Systolic (mm Hg) 135 09/12/2019 [facility] Diastolic (mm Hg) 68 09/12/2019 [facility] Systolic (mm Hg) 113 09/12/2019 [facility] Diastolic (mm Hg) 80 09/12/2019 [facility] Systolic (mm Hg) 148 09/12/2019 [facility] Diastolic (mm Hg) 61 09/12/2019 [facility] Respitory Rate 19 09/12/2019 [facility] Respitory Rate 21 09/12/2019 [facility] Respitory Rate 10 09/12/2019 [facility] Heart Rate 88 09/12/2019 [facility] Weight 192.813 09/09/2019 [facility] BMI Calculated 64.63 09/09/2019 [facility] Height 172.72 cm 09/05/2019 [facility] Encounters Location Location Details Encounter Type Encounter Number Reason For Visit Attending Provider ADM Date DC Date Status Source [facility] [place] [facility] [id number] Nirav Gonzalez 01/18/2015 01/19/2015 [facility] [place] Out[facility] Di[facility] Services [id number] Davidson Tadeo Jr 10/27/2015 10/28/[address] [facility] Recurring [id number] Cherelle Branch 08/26/2018 09/25/2018 [facility] Outpatient [id number] Cherelle Branch 05/02/2019 05/02/2019 [facility] Inpatient [id number] Moustapha Dempsey 09/12/2019 09/12/2019 [facility] Procedures Procedure Code Date Perfomer Comments Source CTR - Carpal tunnel release 47 [id number] [facility] Endoscopy [id number] [facility] Excision of Mendenhall's neuroma [id number] [facility] Manipulation of deviated nasal septum [id number] [facility] Meniscectomy of knee [id number] [facility] Tonsillectomy with adenoidectomy [id number] [facility] Assessment and Plan No Data Provided for This Section Plan of Care No Data Provided for This Section Social History Social History Date Source Social History TypeResponse Smoking Status Never smoker; Ready to change: No; Concerns about tobacco use in household: No; Exposure to Tobacco Smoke None; Cigarette Smoking Last 365 Days No; Reg Smoking Cessation Counseling No entered on: 09/12/19 09/12/2019 [facility] No data available for this section 10/28/2015 [facility] Family History No Data Provided for This Section Advance Directives No Data Provided for This Section Functional Status No Data Provided for This Section
[2020-05-18] MEDS ORDERED: ONDANSETRON HCL INJ 2MG/ML 2ML 2 MG/ML VIAL IV PRN (12:15)
[2020-05-18] MEDS: FAMOTIDINE 20 MG/2 ML VIAL IV SCH (12:47)
--- NOTE | 2020-05-18 12:50 | Emergency Department Note ---
History of Present Illnes History of Present Illness Chief Complaint: Chest Pain History of Present Illness This is a 59 year old male Patient in from home with complaints of mid sternal chest pain and pressure that radiates to his back that woke him up this morning. Patient states the pain is 8/10. Patient states the pain is worse when he takes a deep breath. 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 Any updates have been documented here. Past Medical History Recent Fever: No Clinical Suspicion of Infectio: No New/Unexplained Change in Ment: No Past Medical History: Hypertension, Diabetes, Hyperlipedemia Other Medical History: Bipolar depression Other Surgery: attemped gastric bypass Social History Smoking Cessation: Current every day smoker Counseling Performed: No Alcohol Use: None Any Illegal Drug Use: No TB Exposure/Symptoms: No Physically hurt or threatened: No Family History Family history of heart diseas: Yes Other Any Pre-Existing Lines (PICC,: No Review of Systems Review of Systems Constitutional: Reports no symptoms EENTM: Reports no symptoms Cardiovascular: Reports chest pain Respiratory: Reports no symptoms Gastrointestinal: Reports no symptoms Genitourinary: Reports no symptoms Musculoskeletal: Reports no symptoms Integumentary: Reports no symptoms Neurological: Reports no symptoms Psychological: Reports no symptoms Endocrine: Reports no symptoms Hematological/Lymphatic: Reports no symptoms Physical Exam Related Data Allergies: Coded Allergies: allopurinol (Verified Allergy, Intermediate, 08/16/18) CHILLS, FEVER nitrofurantoin (Verified Allergy, Unknown, ELEVATED HR, 09/17/17) Triage Vital Signs Vital Signs Date Time Temp Pulse Resp B/P (MAP) Pulse Ox O2 Delivery O2 Flow Rate FiO2 05/18/20 10:48 98.1 88 17 178/71 99 Vital signs reviewed: Yes Physical Exam CONSTITUTIONAL Constitutional: Present well-developed, Present well-nourished, Present morbidly obese HENT HENT: Present normocephalic, Present atraumatic, Present oropharynx clear/moist, Present nose normal HENT L/R: Present left ext ear normal, Present right ext ear normal EYES Eyes: Reports PERRL, Reports conjunctivae normal NECK Neck: Present ROM normal PULMONARY Pulmonary: Present effort normal, Present breath sounds normal CARDIOVASCULAR Cardiovascular: Present regular rhythm, Present heart sounds normal, Present capillary refill normal, Present normal rate, Present other (point tenderness left of sternum) GASTROINTESTINAL Abdominal: Present soft, Present nontender, Present bowel sounds normal GENITOURINARY Genitourinary: Present exam deferred SKIN Skin: Present warm, Present dry MUSCULOSKELETAL Musculoskeletal: Present ROM normal NEUROLOGICAL Neurological: Present alert, Present oriented x 3, Present no gross motor or sensory deficits PSYCHOLOGICAL Psychological: Present mood/affect normal, Present judgement normal Results Laboratory Result Diagram: 05/18/20 1057 05/18/20 1057 Laboratory Laboratory Tests Test 05/18/20 12:24 05/18/20 10:57 White Blood Count 10.39 x10e3/uL (4.8-10.8) Red Blood Count 5.03 x10e6/uL (4.3-5.7) Hemoglobin 15.6 g/dL (14.0-18.0) Hematocrit 48.1 % (38.2-49.6) Mean Corpuscular Volume 95.6 fL (81-99) Mean Corpuscular Hemoglobin 31.0 pg (28-32) Mean Corpuscular Hemoglobin Concent 32.4 g/dL (31-35) Red Cell Distribution Width 13.4 % (11.7-14.4) Platelet Count 351 x10e3/uL (140-360) Neutrophils (%) (Auto) 73.4 % (38.7-80.0) Lymphocytes (%) (Auto) 15.9 % (18.0-39.1) Monocytes (%) (Auto) 8.0 % (4.4-11.3) Eosinophils (%) (Auto) 1.1 % (0.0-6.0) Basophils (%) (Auto) 0.8 % (0.0-1.0) Neutrophils # (Auto) 7.6 (2.1-6.9) Lymphocytes # (Auto) 1.7 (1.0-3.2) Monocytes # (Auto) 0.8 (0.2-0.8) Eosinophils # (Auto) 0.1 (0.0-0.4) Basophils # (Auto) 0.1 (0.0-0.1) Absolute Immature Granulocyte (auto 0.08 x10e3/uL (0-0.1) Prothrombin Time 13.0 seconds (11.9-14.5) Prothromb Time International Ratio 0.94 Activated Partial Thromboplast Time 26.6 seconds (23.8-35.5) Sodium Level 141 mmol/L (136-145) Potassium Level 3.9 mmol/L (3.5-5.1) Chloride Level 104 mmol/L (98-107) Carbon Dioxide Level 26 mmol/L (22-29) Anion Gap 14.9 mmol/L (8-16) Blood Urea Nitrogen 10 mg/dL (7-26) Creatinine 0.86 mg/dL (0.72-1.25) Estimat Glomerular Filtration Rate > 60 ML/MIN (60-) BUN/Creatinine Ratio 12 (6-25) Glucose Level 160 mg/dL (74-118) Calcium Level 8.6 mg/dL (8.4-10.2) Total Bilirubin 0.6 mg/dL (0.2-1.2) Aspartate Amino Transf (AST/SGOT) 33 IU/L (5-34) Alanine Aminotransferase (ALT/SGPT) 36 IU/L (0-55) Alkaline Phosphatase 76 IU/L (40-150) Creatine Kinase 26 IU/L (30-200) Creatine Kinase MB 0.60 ng/mL (0-5.0) Troponin I 0.015 ng/mL (0-0.300) B-Type Natriuretic Peptide 25.4 pg/mL (0-100) Total Protein 6.5 g/dL (6.5-8.1) Albumin 3.6 g/dL (3.5-5.0) Globulin 2.9 g/dL (2.3-3.5) Albumin/Globulin Ratio 1.2 (0.8-2.0) Lab results reviewed: Yes Imaging Imaging results reviewed: Yes Procedures 12 Lead ECG Interpretation ECG Interpretation : ECG: ECG 1 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: Interpreted by ED physician Date: May 18, 2020 Time: 10:46 Rhythm: sinus rhythm Rate: normal BPM: 87 QRS axis: normal Conduction: 1st degree ST segments normal: Yes T waves normal: Yes Clinical Impression: normal ECG Assessment & Plan Medical Decision Making MDM multiple cardiac RF's with CP - cbc, chem, ecg, cardiacs, cxr - eval for STEMI/NSTEMI, COSTOCHONDRITIS, PNEUMONIA, ADMIT Reassessment Reassessment ADMIT TO DR LONG (NGHIA PLUS) Assessment & Plan Final Impression: (1) Chest pain Depart Disposition: ADMITTED Last Vital Signs Date Time Temp Pulse Resp B/P (MAP) Pulse Ox O2 Delivery O2 Flow Rate FiO2 05/18/20 10:48 98.1 88 17 178/71 99 Home Meds Reported Medications [Potassium] No Conflict Check, 100 MG PO DAILY 08/16/18 Magnesium Oxide (MAGNESIUM OXIDE) 400 Mg Tablet, 500 MG PO DAILY, TAB 08/16/18 [place]-3 Fatty Acids/Fish Oil (FISH OIL 1,000 MG CAPSULE) 1 Each Capsule, 1 CAP PO DAILY 08/16/18 Meloxicam (MELOXICAM) 7.5 Mg Tablet, 15 MG PO DAILY, #30 TAB 08/16/18 Aripiprazole (ABILIFY) 5 Mg Tablet, 2 MG PO DAILY, #30 TAB 08/16/18 Cholecalciferol (Vitamin D3) (DECARA) 25,000 Unit Capsule, 88101 MG PO WEEKLY 08/16/18 Metformin Hcl (METFORMIN HCL) 500 Mg Tablet, 500 MG PO BID, #60 TAB 08/16/18 Furosemide (FUROSEMIDE) 40 Mg Tablet, 20 MG PO Daily, #30 TAB 08/16/18 [Buspar] No Conflict Check, 10 MG PO BID 08/16/18 Escitalopram Oxalate (LEXAPRO) 10 Mg Tablet, 5 MG PO DAILY, #30 TAB 09/17/17 Febuxostat (ULORIC) 80 Mg Tablet, 80 MG PO DAILY, #30 TAB 09/17/17 Medications in the ED Ondansetron HCl 4 mg ONCE STAT IV Last administered on 05/18/20at 11:27; Admin Dose 4 MG; Start 05/18/20 at 10:54; Stop 05/18/20 at 11:01; Status DC Ketorolac Tromethamine 30 mg ONCE STAT IV Last administered on 05/18/20at 11:27; Admin Dose 30 MG; Start 05/18/20 at 10:54; Stop 05/18/20 at 11:01; Status DC Aspirin 81 mg QAM PO ; Start 05/19/20 at 09:00; Stop 06/18/20 at 08:59 Morphine Sulfate 2 mg Q3H PRN IV MODERATE PAIN (4-6); Start 05/18/20 at 12:15; Stop 05/25/20 at 12:14 Famotidine 20 mg Q12H IV ; Start 05/18/20 at 12:15; Stop 06/17/20 at 12:14 Ondansetron HCl 4 mg Q4H PRN IV NAUSEA AND VOMITING; Start 05/18/20 at 12:15; Stop 06/17/20 at 12:14 RUBY MINOR MD May 18, 2020 12:50
--- OUTSIDE RECORDS SUMMARY | 2020-05-18 12:51 | XMS REPORT | Continuity of Care Document ---
Author Author Sunil Chinmay [id number] YAMILE [employer] Address Unknown Phone Unavailable Care Team Providers Care Millstone Cleaner Name Role Phone [employer] Unavailable Un available Problems Problem Status Onset Date Classification Date Reported Comments Source ROBOTIC ASSISTED LAPAROSCOPIC GASTRIC SL Active 08/27/2019 [facility] 1ST NIGHT - [address]186 Active 04/25/2019 [facility] E66.01 MORBID (SEVERE) OBESITY DUE TO EX Active 07/25/2018 [facility] M75.102 - UNSP ROTATR-CUFF TEAR/RUPTR OF Active 10/25/2015 [facility] [place] Diabetes mellitus (disorder) A ctive Problem 04/2020 [facility] Dyspnea on exertion (finding) Active Problem 04/2020 [facility] Exposure to asbestos (event) A ctive Problem 04/2020 [facility] Gout (disorder) Active Problem 09/14/2019 [facility] Hearing loss (finding) Active Problem 09/14/2019 [facility] Increased frequency of urination (finding) Active Problem 09/14/2019 [facility] Irritable colon (disorder) Act lucia Problem 04/2020 [facility] Mixed anxiety and depressive disorder (disorder) Active Problem 09/14/2019 [facility] Obesity (disorder) Active Problem 09/14/2019 [facility] Paraparesis (disorder) Active Problem 09/14/2019 [facility] Peripheral vascular disease (disorder) Active Problem 04/2020 LE edema [facility] MORBID (SEVERE) OBESITY DUE TO EXCESS CA Active [facility] DIAPHRAGMATIC HERNIA WITHOUT OBSTRUCTION Active [facility] Medications Medication Details Route Status Patient Instructions Ordering Provider Order Date Source Oxycodone Hydrochloride 5 MG Oral Tablet 5 mg, 1 tab, Route: PO, POST OP, Dosing Weight 192.813, kg, Start date: 09/12/19 9:46:00 PHYSICIAN ASSISTANT CERTIFIED, Duration: 30 day, Stop date: 10/12/19 10:45:00 CDT Inactive 09/12/2019 [facility] acetaminophen 325 mg oral tablet 650 mg = 2 tab, PO, Q6H, X 3 day, # 24 tab, 0 Refill(s) Active 09/12/2019 [facility] Docusate Sodium 100 MG Oral Capsule [Colace] 100 mg = 1 cap, PO, BID, PRN Constipation, # 20 cap, 0 Refill(s) Active 09/12/2019 [facility] tramadol hydrochloride 50 MG Oral Tablet 50 mg = 1 tab, PO, Q4H, PRN Pain Score 4-6, X 2 day, # 12 tab, 0 Refill(s) No Longer Active 09/12/2019 [facility] Acetaminophen 1,000 mg, Route: PO, Drug form: TAB, ONCE, Dosing Weight 192.813, kg, PRN Pain Score 1-3, Start date: 09/12/19 9:07:00 PHYSICIAN ASSISTANT CERTIFIED Inactive 09/12/2019 [facility] Morphine 2 mg, Route: IVP, Q5M in, Dosing Weight 192.813, kg, PRN Pain Score 4-6, Start date: 09/12/19 9:07:00 PHYSICIAN ASSISTANT CERTIFIED, Duration: 5 doses or times, Stop date: Limited # of times Inactive 09/12/2019 [facility] Hydromorphone 0.5 mg, Route: I SAP DEVELOPER, Q5Min, Dosing Weight 192.813, kg, PRN Pain Score 7-10, Start date: 09/12/19 9:07:00 PHYSICIAN ASSISTANT CERTIFIED, Duration: 4 doses or times, Stop date: Limited # of times Inactive 09/12/2019 [facility] Flumazenil 0.2 mg, Route: IVP, PRN, Dosing Weight 192.813, kg, PRN Benzodiazepine Reversal, Initial dose, Start date: 09/12/19 9:07:00 PHYSICIAN ASSISTANT CERTIFIED, Duration: 30 day, Stop date: 10/12/19 10:06:00 CDT Inactive 09/12/2019 [facility] Naloxone 0.4 mg, Route: IVP, Q 2MIN, Dosing Weight 192.813, kg, PRN Narcotic Reversal, Start date: 09/12/19 9:07:00 PHYSICIAN ASSISTANT CERTIFIED, Duration: 8 doses or times, Stop date: Limited # of times Inactive 09/12/2019 [facility] Ondansetron 4 mg, Route: IVP, ONCE, Dosing Weight 192.813, kg, PRN Nausea & Vomiting, Start date: 09/12/19 9:07:00 PHYSICIAN ASSISTANT CERTIFIED Inactive 09/12/2019 [facility] Calcium Chloride 0.0014 MEQ/ML / Potassi um Chloride 0.004 MEQ/ML / Sodium Chloride 0.103 MEQ/ML / Sodium Lactate 0.028 MEQ/ML Injectable Solution 1,000 mL, Rate: 75 ml/hr, Infuse over: 1 3.3 hr, Route: IV, Dosing Weight 192.813 kg, Total Volume: 1,000, Start date: 09/12/19 7:44:00 PHYSICIAN ASSISTANT CERTIFIED, Duration: 30 day, Stop date: 10/12/19 7:43:00 CDT, 3.11, m2, 0 Inactive 09/12/2019 [facility] heparin 5,000 unit, Route: SUB -Q, ONCE, Dosing Weight 192.813, kg, Start date: 09/12/19 7:33:00 PHYSICIAN ASSISTANT CERTIFIED, Stop date: 09/12/19 7:33:00 PHYSICIAN ASSISTANT CERTIFIED Inactive 09/12/2019 [facility] 72 HR Scopolamine 0.0139 MG/HR Transdermal Patch 1 patch, Route: TOP, Drug Form: ERFILM, Dosing Weight 192.813, kg, ONCE, Start date: 09/12/19 7:33:00 PHYSICIAN ASSISTANT CERTIFIED, Stop date: 09/12/19 7:33:00 PHYSICIAN ASSISTANT CERTIFIED Inactive 09/12/2019 [facility] Symbicort 160/4.5 inhalation aerosol with adapter 2 puff, INHALATION, BID, # 1 ea, 1 Refill(s) Active 09/05/2019 [facility] Melatonin 10 mg oral tablet, disintegrating 10 mg = 1 tab, CHEW, Bedtime, 0 Refill(s) Active 09/05/2019 [facility] multivitamin CHEW, Daily, 0 Re fill(s) Active 09/05/2019 [facility] ARIPiprazole = 1 tab, PO, QPM, 0 Refill(s) Active 09/05/2019 [facility] escitalopram 5 mg oral tablet 5 mg = 1 tab, PO, QPM, # 30 tab, 1 Refill(s) Active 09/05/2019 [facility] allopurinol 100 mg oral tablet 100 mg = 1 tab, PO, QPM, # 90 tab, 1 Refill(s) Active 09/05/2019 [facility] meloxicam 15 mg oral tablet 15 mg = 1 tab, PO, Daily, PRN Pain, # 30 tab, 1 Refill(s) Active 09/05/2019 [facility] busPIRone 15 mg oral tablet 15 mg = 1 tab, PO, BID, # 270 tab, 0 Refill(s) Active 09/05/2019 [facility] Metformin hydrochloride 500 MG Oral Tablet 500 mg = 1 tab, PO, QAM, # 180 tab, 1 Refill(s) Active 09/05/2019 [facility] 24 HR Metformin hydrochloride 750 MG Ext ended Release Tablet 750 mg = 1 tab, PO, QPM, 0 Refill(s) Active 09/05/2019 [facility] Aspirin Enteric Coated 81 mg oral delaye d release tablet 81 mg = 1 tab, PO, Daily, 0 Refill(s) Active 09/05/2019 [facility] Allergies, Adverse Reactions, Alerts Substance Category Reaction Severity Reaction type Status Date Reported Comments Source Flomax Assertion Drug allergy Active [facility] Macrodantin Assertion Drug allergy Active [facility] Latex Assertion Drug allergy Active [facility] Immunizations No Data Provided for This Section Results Order Name Results Value Reference Range Date Interpretation Comments Source BLOOD BANK RESULTS ABO/Rh O NEG 09/09/2019 [facility] BLOOD BANK RESULTS Antibody Scrn Negative (09/09/19 10:50 AM) 09/09/2019 [facility] CHEM PANEL Glucose Lvl 160 70 - 99 09/09/2019 [facility] CHEM PANEL BUN 19 7 - 22 09/09/2019 [facility] CHEM PANEL Creatinine Lvl 1.05 0.50 - 1.40 09/09/2019 [facility] CHEM PANEL Sodium Lvl 138 135 - 145 09/09/2019 [facility] CHEM PANEL Potassium Lvl 4.0 3.5 - 5.1 09/09/2019 [facility] CHEM PANEL Chloride Lvl 104 95 - 109 09/09/2019 [facility] CHEM PANEL CO2 26 24 - 32 09/09/2019 [facility] CHEM PANEL Calcium Lvl 9.1 8.5 - 10.5 09/09/2019 [facility] CHEM PANEL Total Protein 7.2 6.4 - 8.4 09/09/2019 [facility] CHEM PANEL Albumin Lvl 3.6 3.5 - 5.0 09/09/2019 [facility] CHEM PANEL ALT 47 0 - 65 09/09/2019 [facility] CHEM PANEL AST 22 0 - 37 09/09/2019 [facility] CHEM PANEL Alk Phos 86 39 - 136 09/09/2019 [facility] CHEM PANEL Bili Total 0.8 0.2 - 1.3 09/09/2019 [facility] CHEM PANEL AGAP 12.0 10.0 - 20.0 09/09/2019 [facility] CHEM PANEL B/C Ratio 18 6 - 25 09/09/2019 [facility] CHEM PANEL Globulin 3.6 2.7 - 4.2 09/09/2019 [facility] CHEM PANEL A/G Ratio 1.0 0.7 - 1.6 09/09/2019 [facility] CHEM PANEL eGFR 77 09/09/2019 Result [...] should be multiplied by the estimated BMI. [facility] CHEM PANEL Vitamin D, 25-OH, Total 3 8.3 30.0 - 100.0 09/09/2019 [facility] HEMATOLOGY Segs 71.3 45.0 - 75.0 09/09/2019 [facility] Lymphocytes 17.1 20.0 - 40.0 09/09/2019 [facility] HEMATOLOGY Monocytes 9.1 2.0 - 12.0 09/09/2019 [facility] HEMATOLOGY Eosinophils 1.2 0.0 - 4.0 09/09/2019 [facility] HEMATOLOGY Basophils 1.3 0.0 - 1.0 09/09/2019 [facility] HEMATOLOGY Neutrophils # 8.5 1.5 - 8.1 09/09/2019 [facility] HEMATOLOGY Lymphocytes # 2.0 1.0 - 5.5 09/09/2019 [facility] Monocytes # 1.1 0.0 - 0.8 09/09/2019 [facility] HEMATOLOGY Eosinophils # 0.1 0.0 - 0.5 09/09/2019 [facility] Basophils # 0.2 0.0 - 0.2 09/09/2019 [facility] HEMATOLOGY WBC 11.9 3.7 - 10.4 09/09/2019 [facility] HEMATOLOGY RBC 5.38 4.70 - 6.10 09/09/2019 [facility] HEMATOLOGY Hgb 16.8 14.0 - 18.0 09/09/2019 [facility] Hct 50.7 42.0 - 54.0 09/09/2019 [facility] MCV 94.2 80.0 - 94.0 09/09/2019 [facility] MCH 31.2 27.0 - 31.0 09/09/2019 [facility] MCHC 33.1 32.0 - 36.0 09/09/2019 [facility] RDW 13.6 11.5 - 14.5 09/09/2019 [facility] Platelet 357 133 - 450 09/09/2019 [facility] MPV 8.4 7.4 - 10.4 09/09/2019 [facility] SPECIAL CHEMISTRY Hgb A1C 7.0 <=5.6 % 09/09/2019 [facility] Pathology Reports No Data Provided for [...] findings Willie Bazan MD On 09/09/2019 16:34:00; [id number] 09/09/2019 [facility] Shoulder series DX EXAM: Shoul chanell series DX HISTORY: M75.102 Unspecified rotator cuff tear or rupture of left shoulder, not specified as traumatic COMPARISON: None 3 views of the left shoulder. No fractur e is seen. Alignment is normal. IMPRESSION: No acute abnormality. 10/27/2015 [facility] [place] Knee wo contrast MRI EXAM: MR I [...] Comments Source Systolic (mm Hg) 135 09/12/2019 [facility] Diastolic (mm Hg) 68 09/12/2019 [facility] Systolic (mm Hg) 113 09/12/2019 [facility] Diastolic (mm Hg) 80 09/12/2019 [facility] Systolic (mm Hg) 148 09/12/2019 [facility] Diastolic (mm Hg) 61 09/12/2019 [facility] Respitory Rate 19 09/12/2019 [facility] Respitory Rate 21 09/12/2019 [facility] Respitory Rate 10 09/12/2019 [facility] Heart Rate 88 09/12/2019 [facility] Weight 192.813 09/09/2019 [facility] BMI Calculated 64.63 09/09/2019 [facility] Height 172.72 cm 09/05/2019 [facility] Encounters Location Location Details Encounter Type Encounter Number Reason For Visit Attending Provider ADM Date DC Date Status Source [facility] [place] [facility] [id number] Nirav Gonzalez 01/18/2015 01/19/2015 K[facility] Sierra [facility] [place] [facility] [id number] Davidson Tadeo Jr 10/27/2015 10/28/2015 KARY Sierra [facility] Recurring [id number] Cherelle Branch 08/26/2018 09/25/2018 [facility] Outpatient [id number] Cherelle Branch 05/02/2019 05/02/2019 [facility] Inpatient [id number] Moustapha Dempsey 09/12/2019 09/12/2019 [facility] Procedures Procedure Code Date Perfomer Comments Source CTR - Carpal tunnel release 47 [id number] [facility] Endoscopy [id number] [facility] Excision of Mendenhall's neuroma 8 [id number] [facility] Manipulation of deviated nasal septum [id number] [facility] Meniscectomy of knee [id number] [facility] Tonsillectomy with adenoidectomy [id number] [facility] Assessment and Plan No Data Provided for This Section Plan of Care No Data Provided for This Section Social History Social History Date Source Social History TypeResponse Smoking Status Never smoker; Ready to change: No; Concerns about tobacco use in household: No; Exposure to Tobacco Smoke None; Cigarette Smoking Last 365 Days No; Reg Smoking Cessation Counseling No entered on: 09/12/19 09/12/2019 [facility] No data available for this section 10/28/2015 KARY Sierra Family History No Data Provided for This Section Advance Directives No Data Provided for This Section Functional Status No Data Provided for This Section
--- OUTSIDE RECORDS SUMMARY | 2020-05-18 12:51 | XMS REPORT | Continuity of Care Document ---
Author Author [facility] t Organization [facility] Address [address] [place] [address] Phone Unavailable Care Team Providers Care Mining Captain Name Role Phone Ronak MINOR Attphys Unavailable [...] 2019-09-15 13:25:00 M peewee Moy NIGHT - [id number] NIGHT - [id number] Active 04/25/2019 [facility] Active 2019-04-25 00:00:00 2019-05-01 19:49:00 Sunil Moy E66.01 MORBID (SEVERE) OBESITY DUE TO EX E66.01 MORBID (SEVERE) OBESITY DUE TO EX Active 07/25/2018 [facility] Ac tive 2018-07-25 00:00:00 2018-09-02 11:15:00 M peewee Moy M75.102 - UNSP ROTATR-CUFF TEAR/RUPTR OF M75.102 - UNSP ROTATR-CUFF TEAR/RUPTR OF Active 10/25/2015 [facility] Active 2015-10-25 00:01:00 2015-10-27 10:59:00 M peewee Moy Diabetes mellitus (disorder) D iabetes mellitus (disorder) Active Problem 09/14/2019 [facility] Problem Active 2019-09-14 22:23:12 [facility] [place] Dyspnea on exertion (finding) Dyspnea on exertion (finding) Active Problem 09/14/2019 [facility] Problem Active 2019-09-14 22:23:12 Sunil Moy Exposure to asbestos (event) E xposure to asbestos (event) Active Problem 09/14/2019 [facility] Problem Active 2019-09-14 22:23:12 Sunil Moy Gout (disorder) Gout (disorder) Active Problem 09/14/2019 [facility] Problem Active 2019-09-14 22:23:12 [facility] Hearing loss (finding) Hear ing loss (finding) Active Problem 09/14/2019 [facility] Problem Active 2019-09-14 22:23:1 2 [facility] [place] Increased frequency of urination (finding) Increased frequency of urination (finding) Active Problem 09/14/2019 [facility] Problem Active 2019-09-14 22:23:12 [facility] [place] Irritable colon (disorder) Irr itable colon (disorder) Active Problem 09/14/2019 [facility] Problem Active 2019-09-14 22:23:12 [facility] [place] Mixed anxiety and depressive disorder (disorder) Mixed anxiety and depressive disorder (disorder) Active Problem 09/14/2019 [facility] Problem Active 2019-09-14 22:23:12 [facility] Obesity (disorder) Obes ity (disorder) Active Problem 09/14/2019 [facility] Problem Active 2019-09-14 22:23:12 [facility] [place] Paraparesis (disorder) Para paresis (disorder) Active Problem 09/14/2019 [facility] Problem Active 2019-09-14 22:23:1 2 [facility] [place] Peripheral vascular disease (disorder) Peripheral vascular disease (disorder) Active Problem 09/14/2019 LE edema [facility] Problem Active 2019-09-14 22:23:12 [facility] [place] MORBID (SEVERE) OBESITY DUE TO EXCESS CA MORBID (SEVERE) OBESITY DUE TO EXCESS CA Active [facility] Diagnosis Active 2019-09-15 13:25:00 [facility] [place] DIAPHRAGMATIC HERNIA WITHOUT OBSTRUCTION DIAPHRAGMATIC HERNIA WITHOUT OBSTRUCTION Active [facility] Diagnosis Active 2019-09-15 13:25:00 [facility] Allergies, Adverse Reactions, Alerts Allergy Name Allergy Type Status Severity Reaction(s) Onset Date Inacti ve Date Treating Clinician Comments Source Flomax Flomax Active [facility] kasia Macrodantin Macrodantin Active [facility] Latex Latex Active [facility] Social History Social Habit Start Date Stop Date Quantity Comments Source Social History 2015-10-28 04:59:00 2015-10-28 04:59:00 [facility] [place] Smoking Status Start Date Stop Date Source Social History [facility] [place] Medications Ordered Medication Name Filled Medication Name Start Date Stop Da te Current Medication? Ordering Clinician Indication Dosage Frequency Signature (SIG) Comments Components Source Oxycodone Hydrochloride 5 MG Oral Tablet 2019-09-12 15:46:00 No 5 mg, 1 tab, Route: PO, POST OP, Dosing Weight 192.813, kg, Start date: 09/12/19 9:46:00 DOCUMENT IMAGE TECHNICIAN, Duration: 30 day, Stop date: 10/12/19 10:45:00 CDT [facility] [place] acetaminophen 325 mg oral tablet 2019-09-12 15:08:00 Yes 650 mg = 2 tab, PO, Q6H, X 3 day, # 24 tab, 0 Refill(s) [facility] [place] Docusate Sodium 100 MG Oral Capsule [Colace] 2019-09-12 15:08:00 Yes 100 mg = 1 cap, PO, BID, PRN Constipation, # 20 cap, 0 Refill(s) [facility] [place] tramadol hydrochloride 50 MG Oral Tablet 2019-09-12 15:08:00 No 50 mg = 1 tab, PO, Q4H, PRN Pain Score 4-6, X 2 day, # 12 tab, 0 Refill(s) [facility] [place] Acetaminophen 2019-09-12 15:07:00 No 1,000 mg, Route: PO, Drug form: TAB, ONCE, Dosing Weight 192.813, kg, PRN Pain Score 1-3, Start date: 09/12/19 9:07:00 DOCUMENT IMAGE TECHNICIAN [facility] Morphine 2019-09-12 15:07:00 No 2 mg, Route: IVP, Q5Min, Dosing Weight 192.813, kg, PRN Pain Score 4-6, Start date: 09/12/19 9:07:00 DOCUMENT IMAGE TECHNICIAN, Duration: 5 doses or times, Stop date: Limited # of times [facility] [place] Hydromorphone 2019-09-12 15:07:00 No 0.5 mg, Route: IVP, Q5Min, Dosing Weight 192.813, kg, PRN Pain Score 7-10, Start date: 09/12/19 9:07:00 DOCUMENT IMAGE TECHNICIAN, Duration: 4 doses or times, Stop date: Limited # of times [facility] Flumazenil 2019-09-12 15:07:00 No 0.2 mg, Route: IVP, PRN, Dosing Weight 192.813, kg, PRN Benzodiazepine Reversal, Initial dose, Start date: 09/12/19 9:07:00 DOCUMENT IMAGE TECHNICIAN, Duration: 30 day, Stop date: 10/12/19 10:06:00 CDT [facility] Naloxone 2019-09-12 15:07:00 No 0.4 mg, Route: IVP, Q2MIN, Dosing Weight 192.813, kg, PRN Narcotic Reversal, Start date: 09/12/19 9:07:00 DOCUMENT IMAGE TECHNICIAN, Duration: 8 doses or times, Stop date: Limited # of times [facility] Ondansetron 2019-09-12 15:07:00 No 4 mg, Route: IVP, ONCE, Dosing Weight 192.813, kg, PRN Nausea & Vomiting, Start date: 09/12/19 9:07:00 DOCUMENT IMAGE TECHNICIAN [facility] Calcium Chloride 0.0014 MEQ/ML / Potassi um Chloride 0.004 MEQ/ML / Sodium Chloride 0.103 MEQ/ML / Sodium Lactate 0.028 MEQ/ML Injectable Solution 2019-09-12 13:44:00 No 1,000 mL, Rate: 75 ml/hr, Infuse over: 13.3 hr, Route: IV, Dosing Weight 192.813 kg, Total Volume: 1,000, Start date: 09/12/19 7:44:00 DOCUMENT IMAGE TECHNICIAN, Duration: 30 day, Stop date: 10/12/19 7:43:00 CDT, 3.11, m2, 0 [facility] heparin 2019-09-12 13:33:00 No 5,000 unit, Route: SUB-Q, ONCE, Dosing Weight 192.813, kg, Start date: 09/12/19 7:33:00 DOCUMENT IMAGE TECHNICIAN, Stop date: 09/12/19 7:33:00 [facility] 72 HR Scopolamine 0.0139 MG/HR Transdermal Patch 2019-09-12 13:3 3:00 No 1 patch, Route: TOP, Drug Fo rm: ERFILM, Dosing Weight 192.813, kg, ONCE, Start date: 09/12/19 7:33:00 DOCUMENT IMAGE TECHNICIAN, Stop date: 09/12/19 7:33:00 DOCUMENT IMAGE TECHNICIAN [facility] Symbicort 160/4.5 inhalation aerosol with adapter 2019-09-05 14:56:00 Yes 2 puff, INHALATION, BID, # 1 ea, 1 Refill(s) Sunil Moy Melatonin 10 mg oral tablet, disintegrating 2019-09-05 14:49:00 Yes 10 mg = 1 tab, CHEW, Bedtime, 0 Refill(s) Sunil [place] multivitamin 2019-09-05 14:48:00 Yes CHEW, D aily, 0 Refill(s) [facility] ARIPiprazole 2019-09-05 14:47:00 Yes = 1 tab, [...] Pain, # 30 tab, 1 Refill(s) Sunil [place] busPIRone 15 mg oral tablet 2019-09-05 14:42:00 Yes 15 mg = 1 tab, PO, BID, # 270 tab, 0 Refill(s) Sunil [place] Metformin hydrochloride 500 MG Oral Tablet 2019-09-05 14:41:00 Yes 500 mg = 1 tab, PO, QAM, # 180 tab, 1 Refill(s) Sunil Moy 24 HR Metformin hydrochloride 750 MG Extended Release Tablet 2019-09-05 14:41:00 Yes 750 mg = 1 tab, PO, QPM, 0 Re fill(s) Sunil [place] Aspirin Enteric Coated 81 mg oral delayed [...] Diastolic (mm Hg) 2019-09-12 15:45:00 Mem o[facility] [place] Respitory Rate 2019-09-12 15:37:00 [facility] [place] Resp[facility] 2019-09[facility]12 [facility] [place] [facility] 2019-09-12 15:05:[address] [facility] [place] Heart Rate 2019-09-12 13:00:00 [facility] Weight 2019-09-09 17:12:00 [facility] BMI Calculated 2019-09-09 17:12:[address] [facility] [place] Height 2019-09-05 14:39:00 172.72 cm [facility] Procedures Procedure Date / Time Performed Performing Clinician Sourc e CTR - Carpal tunnel release Hernando rial [place] [facility] Excision of [place]'s neuroma [facility] orial [place] Manipulation of deviated nasal septum [facility] Meniscectomy of knee [facility] Tonsillectomy with adenoidectomy [facility] Encounters Start Date/Time End Date/Time Encounter Type Admission Type Attendi [facility] Emergency Department Facility Care Department Encounter ID Source 2019-09-12 05:40:00 Inpatient [facility] L[facility]A [id number] Located within [facility] 2019-09-12 05:40:00 2019-09-12 10:35:00 Outpatient Moustapha Dempsey [facility] [id number] 2019-05-01 19:39:00 2019-05-01 23:59:00 Outpatient Mariola Branch SE [facility] [id number] 2019-05-01 19:39:00 2019-05-01 19:39:00 Outpatient [facility] [id number] Located within [facility] 2018-08-26 15:06:00 2018-09-24 23:59:00 Outpatient Mariola Branch SE [facility] [id number] 2015-10-27 10:50:00 2015-10-27 23:59:00 Outpatient Davidson Tadeo [facility] [id number] 2015-01-18 11:32:00 2015-01-18 23:59:00 [facility] [id number] Results Test Description Test Time Test Comments Results Result Comments Source CHEST SINGLE (PORTABLE) 2020-05-18 11:58:00 [facility] [address] [address] Patient Name: YAMILE TEE MR #: [id number] : 1960 Age/Sex: 59/M Req #: [id number] Adm Physician: Ordered by: RUBY MINOR MD Report #: [id number] Location: ER Room/Bed: Procedure: [id number] DX/CHEST SINGLE (PORTABLE) Exam Date: Exam Time: [...] 2019-09-09 16:50:00 Negative (09/09/19 10 :50 AM) [facility] [place] CHEM PANEL 2019-09-09 16:50:00 160 [facility] [place] CHEM PANEL 2019-09-09 16:50:00 19 [facility] [place] CHEM PANEL 2019-09-09 16:50:00 1.05 [facility] [place] CHEM PANEL 2019-09-09 16:50:00 138 [facility] [place] CHEM PANEL 2019-09-09 16:50:00 4.0 [facility] [place] CHEM PANEL 2019-09-09 16:50:00 104 [facility] [place] CHEM PANEL 2019-09-09 16:50:00 26 [facility] [place] CHEM PANEL 2019-09-09 16:50:00 9.1 [facility] [place] CHEM PANEL 2019-09-09 16:50:00 7.2 [facility] [place] CHEM PANEL 2019-09-09 16:50:00 3.6 [facility] [place] CHEM PANEL 2019-09-09 16:50:00 47 [facility] [place] CHEM PANEL 2019-09-09 16:50:00 22 [facility] [place] CHEM PANEL 2019-09-09 16:50:00 86 [facility] [place] CHEM PANEL 2019-09-09 16:50:00 0.8 [facility] [place] CHEM PANEL 2019-09-09 16:50:00 12.0 [facility] [place] CHEM PANEL 2019-09-09 16:50:00 Test Item B/C Ratio (test code = B/C Ratio) 18 1 6-25 [facility]annCHE[facility] [id number] 16:50:003.6[facility] 2019-09-09 16:50:00* Test Item Value Reference Range Interpretation Comments A/G Ratio (test code = A/G Ratio) 1.0 1 0.7-1.6 [facility] [id number] 16:50:0077[facility]ann[facility] PANEL 2019-09-09 16:50:0038.3[facility] QgzoluhWQQTXECVPS0173-87-48 16:50:0071.3[facility] BxbtpnbFNVKFPRCVY2595-02-19 16:50:0017.1[facility] LhuxlscIKJZWTLRWU1729-97-57 16:50:009.1[facility] WfqaxulBXSXZVZXIO9000-40-67 16:50:001.2[facility] [place] [id number] 16:50:001.3[facility] OmulbwdXXDJIUKVJS0280-62-82 16:50:008.5 [facility] QhionsgYDSIVBWAGU8976-40-59 16:50:002.0[facility]ann[facility]MATOLOGY 2019-09-09 16:50:001.1[facility] VgxjedyDBABCHZDBM6888-43-06 16:50:000.1[facility] UnfiipxSBXFNAVECW4366-50-25 16:50:000.2[facility] FbveflpJIQFXAIIMU9794-86-66 16:50:0011.9[facility] HcxcfhpTTUTFUTIBV8878-16-03 16:50:005.38[facility] [place] FATCPAVJXY5553-98-68 16:50:0016.8[facility] MhoekrgVCJKSBSXEN6532-41-96 16:50:00 50.7[facility] PmamymmTBHRXWTJAV4931-11-88 16:50:0094.2[facility]ann[facility]MATOLOGY 2019-09-09 16:50:00* Test Item Value Reference Range Interpretation Comments MCH (test code = MCH) 31.2 pg 27.0-31.0 [facility] XjwvhkbBFYFRZPHYR6885-84-80 16:50:0033.1[facility]ann[facility]MATOLOGY 2019-09-09 16:50:0013.6[facility] IitgpguEYLQAJVHTR5498-74-27 16:50:48809Lcdeuezh BofxlseVZFZQUUICF1282-20-47 16:50:008.4[facility]annSPECIAL CHEMISTRY 2019-09-09 16:50:007.0[facility] HermannCHEST 2 ABOLY5574-19-12 14:42:[address] [address] Patient Name: YAMILE TEE MR #: [id number] : 1960 Age/Sex: 57/M Req #: [id number] Adm Physician: Ordered by: NIRAV BA MD Report #: [id number] Location: OR Room/Bed: Procedure: [id number] DX/SCOTT ST 2 VIEWS Exam Date: 08/16/18 [...] 1 450 Transcribed By: TRACY on 08/16/18 6780 COPY TO: NIRAV BA MD
[2020-05-18] MEDS ORDERED: ALLOPURINOL100 MG PO (15:28)
[2020-05-18] MEDS ORDERED: GLIPIZIDE5 MG PO (15:28)
[2020-05-18 15:44] VITALS: BP 160/89
--- NOTE | 2020-05-18 15:44 | NUR ---
Received patient from ER via wheelchair. Respiration even and unlabored without SOB. Patient orientated to room and call light. Denies pain at this time.
[2020-05-18] MEDS ORDERED: MINOCYCLINE ER45 MG PO (16:36)
[2020-05-18] MEDS: MORPHINE SULFATE 2 MG/ML SYR 1ML IV PRN ×2 (17:47→23:29)
--- NOTE | 2020-05-18 19:15 | NUR ---
patient received awake, alert, lying quietly in bed. vss. no c/o pain noted. pm assessment complete. patient instructed to call for assistance when needed.
[2020-05-18 20:00] VITALS: BP 118/65
[2020-05-18 20:43] LABS: CREATINE KINASE MB 0.3 ng/mL (0-5.0)
[2020-05-18 21:47] VITALS: BP 118/65
[2020-05-19] VITALS (14 sets, daily range): BP systolic 114–138; BP diastolic 64–88
[2020-05-19] MEDS: FAMOTIDINE 20 MG/2 ML VIAL IV SCH ×2 (01:08→10:47)
--- NOTE | 2020-05-19 02:45 | NUR ---
third set of cardiac markers drawn at this time.
[2020-05-19 03:27] LABS: CREATINE KINASE MB 0.4 ng/mL (0-5.0)
--- NOTE | 2020-05-19 04:00 | NUR ---
call received from Sigrid Anguiano RN re: elevated S-T on telemetry.
--- NOTE | 2020-05-19 04:16 | NUR ---
stat ekg obtained. ekg shows elevated S-T. Sigrid Anguiano RN made aware of present ekg per her request. Dr. Bueno notified of elevated S-T by Sigrid Anguiano RN. sleep lab technician team called and labelling machine operator activated per orders.
--- NOTE | 2020-05-19 05:15 | NUR ---
consent obtained for heart catheterization per orders. procedure explained to patient. patient verbalizes understanding of this at this time.
[2020-05-19] MEDS ORDERED: VERAPAMIL HCL 2.5 MG/ML 2 ML VIAL ONE (06:03)
[2020-05-19] MEDS ORDERED: HEPARIN SOD (PORCINE) 1000 UNIT/ML 30ML ONE (06:03)
[2020-05-19] MEDS ORDERED: FENTANYL CITRATE/PF 100MCG/2 ML INJ ONE (06:04)
[2020-05-19] MEDS ORDERED: MIDAZOLAM HCL 2 MG/2 ML VIAL ONE ×2 (06:04→06:18)
[2020-05-19] MEDS ORDERED: BIVALRIUDIN 250 MG/VIAL VIAL IV ONE (06:04)
[2020-05-19] MEDS ORDERED: LIDOCAINE HCL 2% LOCAL 20 ML VIAL ONE (06:05)
[2020-05-19] MEDS ORDERED: SODIUM CHLORIDE 0.9% 50ML 0 ML ONE (06:05)
[2020-05-19] MEDS ORDERED: HEPARIN SOD/SOD CHLORIDE 2,000 ML ONE (06:05)
[2020-05-19] MEDS ORDERED: IOPAMIDOL 370 MG/ML 200 ML INFUS..BTL INJ ONE (06:05)
[2020-05-19] MEDS ORDERED: SODIUM CHLORIDE 0.9% 1000ML 1,000 ML ONE (06:05)
[2020-05-19] MEDS ORDERED: NITROGLYCERIN/D5W 200 MCG/ML 250 ML ONE (06:05)
[2020-05-19 06:14] LABS: BASOPHILS # (AUTO) 0.1 (0.0-0.1); BASOPHILS % 0.5 % (0.0-1.0); EOSINOPHILS % 0.2 % (0.0-6.0); HEMATOCRIT 45.1 % (38.2-49.6); HEMOGLOBIN 14.9 g/dL (14.0-18.0); LYMPHOCYTES % 17.1 % (18.0-39.1); MONOCYTES # (AUTO) 1.3 (0.2-0.8); MONOCYTES % 11.4 % (4.4-11.3); NEUTROPHILS # (AUTO) 8.2 (2.1-6.9); NEUTROPHILS % 69.8 % (38.7-80.0); PLATELET COUNT 318 x10e3/uL (140-360); RED CELL DISTRIBUTION WIDTH 13.5 % (11.7-14.4)
--- NOTE | 2020-05-19 06:16 | NUR ---
patient to company laborer via bed at this time.
[2020-05-19 06:28] LABS: ANION GAP 13.9 mmol/L (8-16); BLOOD UREA NITROGEN 10 mg/dL (7-26); BUN/CREATININE RATIO 11 (6-25); CALCIUM 8.5 mg/dL (8.4-10.2); CARBON DIOXIDE 25 mmol/L (22-29); CHLORIDE 104 mmol/L (98-107); CHOL/HDL RATIO 3.2 (3.9-4.7); CHOLESTEROL 125 MD/DL (0-199); EST GLOMERULAR FILTRATION RATE > 60 ML/MIN (60-); GLUCOSE 170 mg/dL (74-118); HDL CHOLESTEROL 39 MG/DL (40-60); LDL CHOLESTEROL 67 MG/DL (60-130); POTASSIUM 3.9 mmol/L (3.5-5.1); SODIUM 139 mmol/L (136-145); TRIGLYCERIDES 96 MG/DL (0-149)
--- NOTE | 2020-05-19 06:50 | NUR ---
Patient is in cardiac cath at this time.
[2020-05-19] MEDS ORDERED: PRASUGREL 10 MG TAB ONE (06:55)
[2020-05-19] MEDS ORDERED: ASPIRIN 325 MG TAB ONE (06:56)
--- NOTE | 2020-05-19 07:58 | Operative Report ---
DATE OF PROCEDURE: 05/19/2020 SURGEON: Gumaro Bueno MD INDICATION: ST-elevation myocardial infarction. PROCEDURES PERFORMED: 1. Ultrasound-guided access in the right radial artery with sheath placement. 2. Conscious sedation 35 minutes. 3. Left heart catheterization, selective coronary angiography. 4. Deployment of right wrist TR band. COMPLICATIONS: None. RECOMMENDATIONS: Medical therapy. DESCRIPTION OF PROCEDURE: Access obtained in the right radial artery using ultrasound guidance. A 6-Bur[place] sheath was placed. Coronary angiography demonstrated dominant right coronary artery with mild 20% to 30% luminal irregularities, CAROLIN-3 flow, left coronary system, diffuse 20% to 30% stenosis, 50% proximal left anterior descending artery stenosis, left and LV end-diastolic pressure of 18. No gradient across the aortic valve on pullback. No intervention deemed necessary. Right wrist TR band applied. The patient transferred to the floor in stable condition. Gumaro Bueno MD KSB/MODL /[id number]
--- NOTE | 2020-05-19 08:45 | NUR ---
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 Bedside report received from LULA Foley. Identifierx2. Alert oriented and appropriate, PERRLA, respirations even and unlabored to room air. Pulses x4 extremeties equal and strong. Pedal pulses PT/DP X4 and marked. Cap fill brisk < 3 sec. TR band rt arm No gross issues pain Skin warm and dry integrity appears D/I IV 20g to rt ac presents healthy w/o s/s of infiltration or complaint. Abdomen soft and supple. pt offered toileting, denies need to urinate or defecate. No personal affects with patient. Family XXXXX. Pt and family verbalizes understanding of POC. Currently w/o complaint of pain or need.tolerating po intake ds/rn
--- NOTE | 2020-05-19 08:45 | NUR ---
0845a RADIAL Compression removal: Initial Cuff volume 16 cc 0845 -3cc Removed No hematoma/bleeding noted with normal neurovascular function. 0900 -3cc Removed No hematoma/ bleeding noted with normal neurovascular function. 0915 -5cc Removed No hematoma/bleeding noted with normal neurovascular function. 0930 -5cc Removed No hematoma/ bleeding noted with normal neurovascular function. Air removal completed. Stasis achieved sterile 2x2,Tegaderm, Coban dressing No hematoma, bleeding noted with normal neurovascular function. Pt instructed on POC. D
[2020-05-19] MEDS ORDERED: ASPIRIN 81 MG ENTERIC COATED PO SCH (09:00)
[2020-05-19] MEDS ORDERED: DEXTROSE 50% SYRINGE 50 ML IV PRN (09:15)
--- NOTE | 2020-05-19 09:30 | NUR ---
5595 Handoff report phoned to Deborah Cash negative fix per rt radial approach No gross issues pain pallor pressure or dysrthmia Transported via bed and tele. Tele room given report. Tolerating po intake. Rtac remian w/o s/s in filtration ds/rn side rails up Left pt in room with staff Hand benji completed. bed in low positon call light at bedside. laz/rn
--- NOTE | 2020-05-19 09:34 | Consultation ---
DATE OF CONSULTATION: 05/19/2020 Cardiology Consultation INDICATION: Myocardial infarction. HISTORY OF PRESENT ILLNESS: Mr. Meng is a morbidly obese gentleman who I have seen before. He had coronary angiography in May 2019 with vyaz-jt-zshmirig coronary artery disease. He was scheduled for weight loss surgery. This was not performed due to an enlarged liver. He presents with chest pain. EKG shows inferior ST elevation. He is being taken emergently to the cardiac labor economics teacher for emergency coronary angiography. PAST MEDICAL HISTORY: 1. Morbid obesity. 2. Coronary artery disease. 3. Hypertension. 4. Diabetes. SOCIAL HISTORY: The patient does not smoke or drink alcohol. MEDICATIONS: Reviewed. REVIEW OF SYSTEMS: Negative except as dictated in the history of present illness. PHYSICAL EXAMINATION: VITAL SIGNS: Afebrile, heart rate is 88, blood pressure is 148/90, O2 saturation 92%. CARDIOVASCULAR: Regular rhythm, S4, gallop. Systolic murmur. LUNGS: Clear to auscultation bilaterally. ABDOMEN: Distended. Bowel sounds are adequately, 2+ edema. Pedal pulses are 1+. NEUROLOGIC: The patient is intact. Overall, in mild distress. No chest wall tenderness. SKIN: Normal. EKG shows sinus rhythm with inferior ST-elevation. Labs are pending. Chest x-ray was reviewed. ASSESSMENT: 1. Inferior ST elevation myocardial infarction. 2. Coronary artery disease. RECOMMENDATIONS: Emergency coronary angiography and intervention as indicated. Risks, benefits, and alternatives of this procedure were discussed with the patient and he is agreeable to proceed. I thank Dr. Chapman for this consultation. MD MARTHA Boyle/LOLI /[id number]
--- NOTE | 2020-05-19 10:40 | NUR ---
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 Right radial artery is wrapped with dressing, no bleeding noted. Respiration even and unlabored without SOB. Call light in reach.
[2020-05-19] MEDS ORDERED: ALLOPURINOL 100 MG TAB PO SCH (11:00)
[2020-05-19] MEDS ORDERED: ARIPIPRAZOLE 2 MG TABLET PO SCH ×2 (11:00→21:00)
[2020-05-19] MEDS ORDERED: MINOCYCLINE HCL 50 MG CAP PO SCH (11:00)
[2020-05-19] MEDS ORDERED: OMEGA 3 POLYUNSAT FATTY ACIDS 1000 MG SOFTGEL PO SCH (11:00)
[2020-05-19] MEDS ORDERED: GLIPIZIDE 5 MG TAB PO SCH (11:00)
[2020-05-19] MEDS ORDERED: ESCITALOPRAM OXALATE 10 MG TAB PO SCH (11:00)
[2020-05-19] MEDS: INSULIN LISPRO 100 UNIT/1 ML 3ML VIAL SQ SCH ×2 (11:30→15:14)
[2020-05-19 12:43] LABS: CREATINE KINASE MB 0.6 ng/mL (0-5.0)
[2020-05-19] MEDS ORDERED: ONDANSETRON HCL 4 MG ORAL DISINTEGRATING TAB PO PRN (13:30)
--- NOTE | 2020-05-19 14:20 | NUR ---
Discharge education provided with discharge packet given. Patient verbalized understanding on follow-up appointment with the doctors. PIV to right AC removed, catheter rip intact, no bleeding noted. Awaiting for pick-up.
--- NOTE | 2020-05-19 15:34 | NUR ---
Patient transported via wheelchair to private vehicle. All personal belongings are taken by the patient.
[2020-05-19] MEDS ORDERED: BUSPIRONE HCL 10 MG TABLET PO SCH (17:00)
[2020-05-19] MEDS ORDERED: FAMOTIDINE 20 MG TAB PO SCH (21:00)
--- NOTE | 2020-05-26 20:11 | History and Physical ---
The patient placed on observation, May 18, 2020, CHIEF COMPLAINT: Chest pain. HISTORY OF PRESENT ILLNESS: The patient is a 59-year-old male, complained of chest pain. The patient placed on observation. Cardiac enzyme was negative. Lab work was otherwise unremarkable. Consultation with Dr. Gumaro Bueno. PAST MEDICAL HISTORY: Hypertension and obesity. PAST SURGICAL HISTORY: Noncontributory. SOCIAL HISTORY: The patient does not smoke or use alcohol. No regular drugs. ALLERGIES: NO KNOWN ALLERGIES. HOME MEDICATIONS: List reviewed. REVIEW OF SYSTEMS: Chest pain without any shortness of breath. No headache. No abdominal pain. No lower extremity pain. PHYSICAL EXAMINATION: VITAL SIGNS: Temperature is 98, blood pressure 130/62, pulse rate is 80, and respirations 20. GENERAL: The patient is in no acute distress. HEENT: Normocephalic and atraumatic. Anicteric. NECK: Supple grossly. PULMONARY: Clear. CARDIOVASCULAR: Regular rate and rhythm. ABDOMEN: Obese. EXTREMITIES: No cyanosis or edema. NEUROLOGIC: No focal deficit. LABORATORY DATA: Reviewed, otherwise unremarkable. Cardiac enzyme was negative. IMPRESSION: 1. Chest pain. 2. Morbid obesity. 3. Some abnormality of EKG. PLAN: Left heart catheterization by Dr. Gumaro Bueno. Resume home medication. We will follow up post left heart catheterization. MD DOMI Cortes/MUNIRL /[id number]
--- NOTE | 2020-05-26 20:16 | Discharge Summary ---
RADIOLOGY TRANSPORTER: Dr. Gumaro Bueno. FINAL DIAGNOSES: 1. Chest pain with multiple risk factor. 2. Morbid obesity. 3. Status post left heart catheterization done on May 19, 2020. There was no blockage. No intervention. The patient's ejection fraction of 50%. HOSPITAL COURSE: The patient is a 59-year-old male with chest pain with risk factors. The patient is morbidly obese. The patient underwent left cardiac catheterization. The left heart catheterization showed minimal blockage of 20% to 30% on the RCA and on the circumflex. A 50% on the left coronary artery before the diagonal. The patient was otherwise stable. Cardiac exam negative. No further workup needed. The patient was cleared from cardiac standpoint and the patient want to go home. I went ahead and gave permission for the nurse to discharge the patient home. Resume home medication and follow up with Dr. Gumaro Bueno as planned. The patient is otherwise stable. No bleeding. No complication from cardiac catheterization without any intervention. MD DOMI Cortes/LOLI /[id number]
== END 2020-05-19 15:34 | disposition home or self-care (01) ==
LOC: ER 11:00 → ERHOLD 12:13 → MED/SURG3 15:44
PROVIDERS: ADMIT Internal Medicine; ATTEND Internal Medicine
DX: I25.10 Atherosclerotic heart disease of native coronary artery without angina pectoris (principal); E66.01 Morbid (severe) obesity due to excess calories; Z68.44 Body mass index [BMI] 60.0-69.9, adult; I10 Essential (primary) hypertension; E11.9 Type 2 diabetes mellitus without complications; E78.5 Hyperlipidemia, unspecified; F31.9 Bipolar disorder, unspecified; F17.200 Nicotine dependence, unspecified, uncomplicated; Z82.49 Family history of ischemic heart disease and other diseases of the circulatory system; Z11.59 Encounter for screening for other viral diseases
CPT/HCPCS: 36415 ×2; 71045; 76937; 80048; 80053; 80061; 82550 ×2; 82553 ×2; 82948 ×2; 83880; 84484 ×2; 85025 ×2; 85610; 85730; 93005 ×2; 93454; 99284; C1887; G0378 ×2; J1644; J1885; J2001; J2250; J2270 ×2; J2405; J3010; J7030; Q9967; U0002; 99152; J0583

== ENCOUNTER 2020-06-02 17:01 | Observation (INO) | payer OTHER ==
[~2020-06-02] VITALS: Ht 172.7 cm; Wt 191.4 kg
[~2020-06-02 17:01] MED LIST changes: +ALLOPURINOL100 MG PO; +GLIPIZIDE5 MG PO; +MINOCYCLINE ER45 MG PO
[2020-06-02 18:44] LABS: BASOPHILS # (AUTO) 0.1 (0.0-0.1); BASOPHILS % 0.5 % (0.0-1.0); EOSINOPHILS # (AUTO) 0.1 (0.0-0.4); EOSINOPHILS % 0.5 % (0.0-6.0); HEMATOCRIT 44.4 % (38.2-49.6); HEMOGLOBIN 14.4 g/dL (14.0-18.0); LYMPHOCYTES # (AUTO) 1.8 (1.0-3.2); LYMPHOCYTES % 14.1 % (18.0-39.1); MEAN CORPUSCULAR HEMOGLOBIN 30.7 pg (28-32); MEAN CORPUSCULAR HGB CONC 32.4 g/dL (31-35); MEAN CORPUSCULAR VOLUME 94.7 fL (81-99); MONOCYTES # (AUTO) 1.4 (0.2-0.8); MONOCYTES % 10.6 % (4.4-11.3); NEUTROPHILS # (AUTO) 9.5 (2.1-6.9); NEUTROPHILS % 73.2 % (38.7-80.0); PLATELET COUNT 436 x10e3/uL (140-360); RED BLOOD COUNT 4.69 x10e6/uL (4.3-5.7); RED CELL DISTRIBUTION WIDTH 13.2 % (11.7-14.4)
[2020-06-02 18:55] LABS: INR 1.05; PARTIAL THROMBOPLASTIN TIME 32.2 seconds (23.8-35.5); PROTHROMBIN TIME 14.2 seconds (11.9-14.5)
[2020-06-02 19:02] LABS: ALANINE AMINOTRANSFERASE 22 IU/L (0-55); ALBUMIN 2.7 g/dL (3.5-5.0); ALBUMIN/GLOBULIN RATIO 0.8 (0.8-2.0); ALKALINE PHOSPHATASE 74 IU/L (40-150); BLOOD UREA NITROGEN 13 mg/dL (7-26); BUN/CREATININE RATIO 15 (6-25); CALCIUM 8.8 mg/dL (8.4-10.2); CARBON DIOXIDE 25 mmol/L (22-29); CHLORIDE 100 mmol/L (98-107); CREATINE KINASE 42 IU/L (30-200); CREATININE, SERUM 0.88 mg/dL (0.72-1.25); EST GLOMERULAR FILTRATION RATE > 60 ML/MIN (60-); GLUCOSE 154 mg/dL (74-118); SODIUM 137 mmol/L (136-145)
[2020-06-02 19:26] LABS: CLARITY,URINE SL CLOUDY (CLEAR); COLOR,URINE YELLOW (YELLOW)
[2020-06-02 19:27] LABS: BILIRUBIN,URINE SMALL (NEGATIVE); KETONES,URINE 1+ (NEGATIVE); LEUKOCYTE ESTERASE ,URINE TRACE (NEGATIVE); NITRITE,URINE NEGATIVE (NEGATIVE); PROTEIN,URINE DIPSTICK 1+ (NEGATIVE); URINE UROBILINOGEN 1 mg/dL (0.2 - 1)
[2020-06-02 19:35] LABS: BACTERIA,URINE RARE /HPF; RBC,URINE 0-5 /HPF (0-5)
[2020-06-02] MEDS ORDERED: IOPAMIDOL 370 MG/ML 200 ML INFUS..BTL INJ ONE (19:50)
[2020-06-02] MEDS ORDERED: SODIUM CHLORIDE 0.9% 50ML 50 ML ONE (19:50)
[2020-06-02] MEDS ORDERED: ONDANSETRON HCL INJ 2MG/ML 2ML 2 MG/ML VIAL IV PRN (21:30)
[2020-06-02] MEDS ORDERED: SODIUM CHLORIDE FLUSH 10 ML SYR INJ PRN (21:30)
[2020-06-02] MEDS: ASPIRIN 81 MG ENTERIC COATED PO SCH (21:39)
[2020-06-02] MEDS ORDERED: DEXTROSE 50% SYRINGE 50 ML IV PRN (23:15)
[2020-06-03 00:30] VITALS: BP 147/69
[2020-06-03 00:36] VITALS: BP 147/69
[2020-06-03] MEDS ORDERED: MELATONIN3 MG PO (01:19)
[2020-06-03] MEDS ORDERED: ASPIRIN EC81 MG PO (01:19)
[2020-06-03] MEDS ORDERED: PRAVACHOL20 MG PO (01:19)
[2020-06-03] MEDS ORDERED: BUSPIRONE HCL5 MG PO (01:19)
[2020-06-03 02:27] LABS: CREATINE KINASE MB 1.3 ng/mL (0-5.0)
[2020-06-03 05:02] VITALS: BP 122/72
[2020-06-03] MEDS ORDERED: HYDROXYZINE HCL25 MG PO (06:39)
[2020-06-03] MEDS: INSULIN REGULAR, HUMAN 100 UNIT/1 ML 3ML VIAL SQ SCH ×2 (08:02→11:30)
[2020-06-03] MEDS: ASPIRIN 81 MG ENTERIC COATED PO SCH (08:17)
[2020-06-03 08:42] VITALS: BP 150/79
[2020-06-03 08:43] VITALS: BP 150/79
[2020-06-03] MEDS ORDERED: FUROSEMIDE INJ 10 MG/ML 4 ML VIAL IV ONE (10:00)
[2020-06-03] MEDS ORDERED: AMOXICILLIN/CLAVULANATE K 875 MG TAB PO SCH (10:00)
[2020-06-03] MEDS ORDERED: MAGNESIUM SULF 1GRAM/DEXTROSE 100 ML IV ONE (11:15)
[2020-06-03] MEDS ORDERED: LASIX40 MG PO (12:09)
[2020-06-03] MEDS ORDERED: POTASSIUM CHLO10 ME1 PO (12:09)
[2020-06-03] MEDS ORDERED: AUGMENTIN 875-1 EACH PO (12:09)
[2020-06-03 12:22] LABS: CREATINE KINASE MB 1.2 ng/mL (0-5.0)
[2020-06-03 12:54] VITALS: BP 128/95
[2020-06-03] MEDS ORDERED: GLIPIZIDE 5 MG TAB PO SCH (17:00)
[2020-06-03] MEDS ORDERED: BUSPIRONE HCL 10 MG TABLET PO SCH (17:00)
[2020-06-03] MEDS ORDERED: FUROSEMIDE INJ 10 MG/ML 4 ML VIAL IV SCH (17:00)
[2020-06-03] MEDS ORDERED: PRAVASTATIN 20 MG TAB PO SCH (21:00)
[2020-06-03] MEDS ORDERED: MELATONIN 5 MG TABLET PO SCH (21:00)
[2020-06-04] MEDS ORDERED: FUROSEMIDE INJ 10 MG/ML 4 ML VIAL IV SCH (09:00)
[2020-06-04] MEDS ORDERED: OMEGA 3 POLYUNSAT FATTY ACIDS 1000 MG SOFTGEL PO SCH (09:00)
[2020-06-04] MEDS ORDERED: HYDROXYZINE HCL 25 MG TAB PO SCH (09:00)
[2020-06-04] MEDS ORDERED: ALLOPURINOL 100 MG TAB PO SCH (09:00)
[2020-06-04] MEDS ORDERED: MINOCYCLINE HCL 50 MG CAP PO SCH (09:00)
[2020-06-04] MEDS ORDERED: ARIPIPRAZOLE 2 MG TABLET PO SCH (09:00)
[2020-06-04] MEDS ORDERED: ASPIRIN 81 MG ENTERIC COATED PO SCH (09:00)
== END 2020-06-03 14:09 | disposition home or self-care (01) ==
LOC: ER 18:40 → ERHOLD 21:31 → INTOOBSV 21:31 → MED/SURG 06-03 00:13
PROVIDERS: ADMIT Internal Medicine; ATTEND Internal Medicine
DX: I11.0 Hypertensive heart disease with heart failure (principal); I50.33 Acute on chronic diastolic (congestive) heart failure; E11.9 Type 2 diabetes mellitus without complications; J45.909 Unspecified asthma, uncomplicated; I25.10 Atherosclerotic heart disease of native coronary artery without angina pectoris; Z87.440 Personal history of urinary (tract) infections; F41.9 Anxiety disorder, unspecified; R00.8 Other abnormalities of heart beat; J90 Pleural effusion, not elsewhere classified; Z20.828 Contact with and (suspected) exposure to other viral communicable diseases; E66.01 Morbid (severe) obesity due to excess calories; Z68.44 Body mass index [BMI] 60.0-69.9, adult; Z91.14 Patient's other noncompliance with medication regimen; Z11.59 Encounter for screening for other viral diseases; Z79.84 Long term (current) use of oral hypoglycemic drugs
CPT/HCPCS: 36415 ×2; 71045; 71260; 80053; 80061; 81001; 82550 ×2; 82553 ×2; 82948; 83735; 83880; 84484 ×2; 85025; 85379; 85610; 85730; 93005; 93306; 99285; G0378 ×2; J1940; J3475; Q9967; U0002

== ENCOUNTER 2020-11-01 20:24 | Emergency (ER) | payer OTHER ==
[~2020-11-01] VITALS: Ht 172.7 cm; Wt 191.4 kg
[~2020-11-01 20:24] MED LIST changes: +ASPIRIN EC81 MG PO; +AUGMENTIN 875-1 EACH PO; +BUSPIRONE HCL5 MG PO; +HYDROXYZINE HCL25 MG PO; +LASIX40 MG PO; +MELATONIN3 MG PO; +POTASSIUM CHLO10 ME1 PO; +PRAVACHOL20 MG PO
[2020-11-01 22:11] LABS: BASOPHILS # (AUTO) 0.1 (0.0-0.1); BASOPHILS % 0.9 % (0.0-1.0); EOSINOPHILS # (AUTO) 0.3 (0.0-0.4); EOSINOPHILS % 3.2 % (0.0-6.0); HEMATOCRIT 47.6 % (38.2-49.6); HEMOGLOBIN 15.4 g/dL (14.0-18.0); LYMPHOCYTES # (AUTO) 2.6 (1.0-3.2); LYMPHOCYTES % 24.5 % (18.0-39.1); MEAN CORPUSCULAR HEMOGLOBIN 30.8 pg (28-32); MEAN CORPUSCULAR HGB CONC 32.4 g/dL (31-35); MEAN CORPUSCULAR VOLUME 95.2 fL (81-99); MONOCYTES # (AUTO) 1.1 (0.2-0.8); MONOCYTES % 9.9 % (4.4-11.3); NEUTROPHILS # (AUTO) 6.5 (2.1-6.9); NEUTROPHILS % 60.8 % (38.7-80.0); PLATELET COUNT 343 x10e3/uL (140-360); RED CELL DISTRIBUTION WIDTH 13.7 % (11.7-14.4)
[2020-11-01 22:20] LABS: INR 0.95; PROTHROMBIN TIME 13.2 seconds (11.9-14.5)
[2020-11-01 22:21] LABS: PARTIAL THROMBOPLASTIN TIME 26.7 seconds (23.8-35.5)
[2020-11-01 22:28] LABS: ALANINE AMINOTRANSFERASE 42 IU/L (0-55); ALBUMIN 3.4 g/dL (3.5-5.0); ALBUMIN/GLOBULIN RATIO 0.9 (0.8-2.0); ALKALINE PHOSPHATASE 135 IU/L (40-150); BLOOD UREA NITROGEN 28 mg/dL (7-26); BUN/CREATININE RATIO 27 (6-25); CALCIUM 9.2 mg/dL (8.4-10.2); CARBON DIOXIDE 31 mmol/L (22-29); CHLORIDE 100 mmol/L (98-107); CREATINE KINASE 22 IU/L (30-200); CREATININE, SERUM 1.04 mg/dL (0.72-1.25); EST GLOMERULAR FILTRATION RATE > 60 ML/MIN (60-); GLUCOSE 201 mg/dL (74-118); SODIUM 143 mmol/L (136-145)
== END 2020-11-02 01:15 | disposition home or self-care (01) ==
LOC: ER 11-02 00:16
DX: R07.89 Other chest pain (principal); R20.0 Anesthesia of skin; R20.2 Paresthesia of skin; K76.9 Liver disease, unspecified; F31.9 Bipolar disorder, unspecified; I25.10 Atherosclerotic heart disease of native coronary artery without angina pectoris; J45.909 Unspecified asthma, uncomplicated; I25.2 Old myocardial infarction
CPT/HCPCS: 36415; 70450; 71046; 80053; 82550; 82553; 83880; 84484; 85025; 85610; 85730; 93005; 99283